=== PATIENT | female | born 1945 | race American Indian/Alaskan Native ===

== ENCOUNTER 2021-07-06 14:44 | Inpatient (IN) | payer MEDICARE ==
--- NOTE | 2021-07-06 15:02 | Emergency Department Report ---
ED Shortness of Breath HPI - General Stated Complaint: PAT Time Seen by Provider: 07/06/21 14:48 Source: patient, EMS, old records reviewed (nursing home facility docum entation) Mode of arrival: Ambulatory Limitations: No Limitations - History of Present Illness Initial Comments: Chief complaint shortness of breath, chest discomfort HPI: This is a 75-year-old female with history of encephalopathy COPD, chronic respiratory failure on 2 L nasal cannula, pulmonary hypertension, venous insufficiency, hypertension, end-stage renal disease on hemodialysis Tuesday, systolic heart failure, obstructive sleep apnea, CVA with left hemiplegia, history of breast cancer who presents from [facility] with shortness of breath and chest discomfort. Shortness of breath has been present for at least 3 days. Patient normally requires 2 L nasal cannula. She has had increased oxygen requirement. Today 11 AM she had the gradual onset of chest discomfort. Mild to moderate. No association with cough. She has a nonproductive cough. She denies fever or chills. Patient had nonrebreather in place upon EMS arrival. SNF staff reported room air oxygenation 85% According to SNF documentation, patient is full CODE STATUS. I spoke with Alana Posey daughter phone #[phone] Daughter is the clinical decision maker. Patient has lived with Ms. Alana Posey for 14 years. Patient was diagnosed with dementia 2 years ago. She has had a angel decline in her clinical medical condition since her diagnosis. Three weeks ago, patient stopped walking. She was admitted at [facility] 3 weeks ago for "heart discomfort" and dementia. Patient also was being treated for ulceration over her right Achilles tendon. She was transferred to [facility] 2 1/2 weeks ago for physical therapy and rehabilitation. Goal was to be discharged tomorrow with daughter Alana Posey. Ms. Posey plans to continue to take care of her mother at home. Patient was informed by staff members at [facility] that 9 patients and 1 nurse ordered recently diagnosed with Covid infection. Ms. Posey is concerned that her mother may have contracted Covid. Patient was diagnosed with Covid infection in February. She received 2 doses of but during the Covid vaccine in February. Patient's PCP former PCP Dr. Dawn at [facility]. She is now followed at [facility]. She receives dialysis at [address] Gwendolyn sparks. Patient normally receives hemodialysis Tuesday at the [facility]. While admitted her scheduled dialysis days changed to Tuesday. [facility]. Patient has been on dialysis for 5 to 6 years. She does not make urine. MD Complaint: shortness of breath, cough, chest pain -: Gradual, days(s) (3 days) Severity: severe Quality: dull Consistency: constant Improves With: nothing Worsens With: nothing Known History Of: COPD, congestive heart failure, other (End-stage renal disease) Treatments Prior to Arrival: oxygen - Related Data Allergies Allergy/AdvReac Type Severity Reaction Status Date / Time No Known Allergies Allergy Unverified 07/06/21 15:00 ED Review of Systems ROS: Stated complaint: PAT Other details as noted in HPI Comment: All other systems reviewed and negative Constitutional: malaise. denies: fever Respiratory: cough, shortness of breath Cardiovascular: chest pain Gastrointestinal: denies: abdominal pain, nausea, vomiting ED Past Medical Hx - Past Medical History Previous Medical History?: Yes Hx Hypertension: Yes Hx CVA: Yes Hx Congestive Heart Failure: Yes Hx Renal Disease: Yes Hx COPD: Yes - Surgical History Additional Surgical History: Hysterectomy, - Social History Smoking Status: Former Smoker Substance Use Type: None ED Physical Exam - General General appearance: alert, in distress, other (Obvious work of breathing speaking 1-2 word sentences with effort) - Head Head exam: Present: atraumatic, normocephalic - Eye Eye exam: Present: normal appearance - ENT ENT exam: Present: mucous membranes moist - Neck Neck exam: Present: normal inspection, full ROM - Respiratory Respiratory exam: Present: respiratory distress, rales, rhonchi, accessory muscle use, decreased breath sounds, prolonged expiratory - Cardiovascular Cardiovascular Exam: Present: regular rate, normal rhythm, normal heart sounds. Absent: systolic murmur, diastolic murmur, rubs, gallop - GI/Abdominal GI/Abdominal exam: Present: soft, normal bowel sounds. Absent: distended, tenderness, guarding, rebound - Extremities Exam Extremities exam: Present: other (No pedal edema, bandage right lower posterior leg) - Neurological Exam Neurological exam: Present: alert, oriented X3 - Psychiatric Psychiatric exam: Present: depressed, flat affect - Skin Skin exam: Present: warm, dry, intact, other (Hyperpigmented venous stasis changes) ED Course Vital Signs 07/06/21 07/06/21 07/06/21 15:00 15:15 15:16 Temperature 99 F Pulse Rate 84 82 Pulse Rate [ Anterior Bilateral Throughout] Respiratory 15 22 Rate Respiratory Rate [Anterior Bilateral Throughout] Blood Pressure 121/65 Blood Pressure 117/54 [Right] O2 Sat by Pulse 100 93 97 Oximetry 07/06/21 07/06/21 07/06/21 15:31 15:36 16:01 Temperature Pulse Rate 81 75 Pulse Rate [ 76 Anterior Bilateral Throughout] Respiratory 22 18 Rate Respiratory 21 Rate [Anterior Bilateral Throughout] Blood Pressure 117/54 111/54 Blood Pressure [Right] O2 Sat by Pulse 97 100 Oximetry 07/06/21 16:31 Temperature Pulse Rate 74 Pulse Rate [ Anterior Bilateral Throughout] Respiratory 17 Rate Respiratory Rate [Anterior Bilateral Throughout] Blood Pressure 133/65 Blood Pressure [Right] O2 Sat by Pulse 100 Oximetry ED Medical Decision Making - Lab Data Result diagrams: 07/06/21 15:17 07/06/21 15:17 - EKG Data -: EKG Interpreted by Me EKG shows normal: sinus rhythm Rate: normal - EKG Data 07/06/21 15:25 EKG obtained 1452 EKG interpreted by me Rate 90 bpm normal sinus rhythm left axis deviation left bundle branch block no notable ischemia, concordant ST elevation does not meet [facility] STEMI criteria - Radiology Data Radiology results: report reviewed [facility] [address] [place] [address] XRay Report Signed Patient: JAROCHO POSEY MR#: [id number] : 1945 Acct:[id number] Age/Sex: 75 / F ADM Date: 07/06/21 Loc: ED Attending Dr: Ordering Physician: Danyelle Ward MD Date of Service: 07/06/21 Procedure(s): XR chest 1V ap Accession Number(s): [id number] cc: Danyelle Ward MD Fluoro Time In Minutes: XR chest 1V ap INDICATION / CLINICAL INFORMATION: Chest Pain shortness of breath. COMPARISON: None available. FINDINGS: SUPPORT DEVICES: None. HEART /PULMONARY VASCULATURE: There is cardiomegaly with pulmonary vasculature congestion. LUNGS / PLEURA: Patchy pulmonary airspace opacities are seen throughout the lungs, may reflect pulmonary edema. No sizable pleural effusion. No pneumothorax. ADDITIONAL FINDINGS: No significant additional findings. IMPRESSION: CHF with patchy pulmonary opacities, may reflect pulmonary edema., Correlation to exclude superimposed pneumonia. Signer Name: Tina Gordon MD Signed: 07/06/2021 3:27 PM Workstation Name: [id number] Transcribed By: LARRY Dictated By: TINA GORDON MD Electronically Authenticated By: TINA GORDON MD Signed Date/Time: 07/06/21 1527 DD/ 25 TD/TT: - Medical Decision Making Acute on chronic respiratory failure hypoxia with increasing oxygen requirement. Patient normally uses 2 L nasal cannula oxygen. She is now on 5 L nasal cannula. Multifactorial: Acute systolic heart failure likely superimposed hypervolemia due to renal disease. Next Patient mated to hospital service in fair condition. I have reviewed labs: BNP greater than 35,000 reflective of both cardiac and renal disease, troponin equivocal elevation, potassium within normal limits. Bicarbonate within normal limits. Suspect anemia chronic disease. WBC within normal limits Critical Care Time: Yes Critical care time in (mins) excluding proc time.: 40 Critical care attestation.: If time is entered above; I have spent that time in minutes in the direct care of this critically ill patient, excluding procedure time. 40 minutes of critical care time excluding procedures were used in the care of the patient. I listened to EMS report with charge nurse. Possible STEMI reported. I asked interventional radiologist Dr. Harding to review the transmitted EKG prior to patient's arrival. He determined that EKG represented left bundle branch block without meeting ST elevation for acute IL. I came immediately to the bedside upon patient's arrival. I obtained history from EMS at the bedside. I reviewed stat EKG which was obtained while patient was located at the EMS wall. I discussed treatment plan with the nursing team members. I reviewed electronic record. I kept the family members informed. Patient required m ultiple interventions and reassessments. ED Disposition Clinical Impression: Acute respiratory failure with hypoxia, Acute systolic heart failure, End-stage renal disease on hemodialysis, Pulmonary hypertension, Suspected COVID-19 virus infection Disposition: ADMITTED INPATIENT Is pt being admited?: Yes Does the pt Need Aspirin: No Condition: Fair
--- NOTE | 2021-07-06 15:32 | XRay Report ---
XR chest 1V ap INDICATION / CLINICAL INFORMATION: Chest Pain shortness of breath. COMPARISON: None available. FINDINGS: SUPPORT DEVICES: None. HEART /PULMONARY VASCULATURE: There is cardiomegaly with pulmonary vasculature congestion. LUNGS / PLEURA: Patchy pulmonary airspace opacities are seen throughout the lungs, may reflect pulmon alisson edema. No sizable pleural effusion. No pneumothorax. ADDITIONAL FINDINGS: No significant additional findings. IMPRESSION: CHF with patchy pulmonary opacities, may reflect pulmonary edema., Correlation to exclude superimpose d pneumonia. Signer Name: Piotr Gordon MD Signed: 07/06/2021 3:27 PM Workstation Name: [id number]
[2021-07-06 15:35] LABS: Basophils # (Auto) 0.1 K/mm3 (0.0-0.1); Basophils % (Auto) 1.6 % (0.0-1.8); Eosinophils % (Auto) 0.1 % (0.0-4.3); Hematocrit 23.1 % (30.3-42.9); Hemoglobin 7.7 gm/dl (10.1-14.3); Lymphocytes % (Auto) 20.2 % (13.4-35.0); Mean Corpuscular HGB Conc 33 % (30-34); Mean Corpuscular Volume 98 fl (79-97); Monocytes # (Auto) 0.4 K/mm3 (0.0-0.8); Platelet Count 394 K/mm3 (140-440); Red Blood Count 2.37 M/mm3 (3.65-5.03); Red Cell Distribution Width 16.6 % (13.2-15.2)
[2021-07-06] MEDS ORDERED: VANCOMYCIN/NS 1 GM/250 ML 1 GM/250 ML BAG IV ONE (15:45)
[2021-07-06] MEDS ORDERED: PIPERACIL/TAZOBACTA 4.5/NS 100 4.5 GM/100 ML VIAL IV ONE (15:45)
[2021-07-06] MEDS ORDERED: ALBUTEROL 2.5 MG/3 ML NEBU IH ONE (16:00)
[2021-07-06] MEDS ORDERED: IPRATROPIUM 0.02% NEBU 2.5 ML IH ONE (16:00)
[2021-07-06 16:52] LABS: Albumin 3.3 g/dL (3.9-5)
[2021-07-06 17:25] LABS: Chol/HDL Ratio 1.92 %
[2021-07-06] MEDS ORDERED: METOCLOPRAMIDE 10 MG/2 ML INJ IV PRN ×2 (21:44→21:52)
[2021-07-06] MEDS ORDERED: ONDANSETRON 4 MG/2 ML INJ IV PRN (21:44)
[2021-07-06] MEDS ORDERED: ACETAMINOPHEN 325 MG TAB PO PRN (21:44)
[2021-07-06] MEDS ORDERED: FAMOTIDINE 20 MG TAB PO SCH (22:00)
--- NOTE | 2021-07-06 22:20 | History and Physical Report ---
History of Present Illness Date of examination: 07/06/21 Date of admission: 07/06/21 17:18 Chief complaint: Shortness of breath for 3 days History of present illness: 75-year-old -[place] female with multiple medical problems including end-stage renal disease on hemodialysis: Chronic respiratory failure on 2 L nasal cannula oxygen, pulmonary hypertension and hypertension sent from [facility] for increasing shortness of breath for the past 3 days. Patient is normally on 2 L nasal cannula oxygen. Patient has been having increased oxygen requirements. Around 11 AM today patient had chest discomfort and orthopnea. Oxygen saturations were low in the mid 85's. No fever or chills. Patient was put on nonrebreather by EMS. Patient was sent in for evaluation for increasing shortness of breath. No fever or chills. Recent exposure to coronavirus from 9 patient is in [facility]. Patient was diagnosed with Covid infection in March 07February. She received 2 doses of vaccination in February. Patient's primary care physician is Dr. Dawn and tobacco hanger is Dr. Ames and her hemodialysis is on Tuesday. [facility] Patient has been on dialysis for 5 years and does not make any urine. Patient also has a history of COPD. - Past Medical History --Previous Medical History?: Yes --Hypertension: Yes --CVA: Yes --Congestive Heart Failure: Yes --Renal Disease: Yes --COPD: Yes - Surgical History Additional Surgical History: Hysterectomy, - Social History Smoking Status: Former Smoker Substance Use Type: None Review of Systems ROS: Stated complaint: PAT Other details as noted in HPI Comment: All other systems reviewed and negative Constitutional: malaise. denies: fever Respiratory: cough, shortness of breath Cardiovascular: chest pain Gastrointestinal: denies: abdominal pain, nausea, vomiting Medications and Allergies Allergies Allergy/AdvReac Type Severity Reaction Status Date / Time No Known Allergies Allergy Unverified 07/06/21 15:00 Active Meds: Active Medications Acetaminophen (Acetaminophen 325 Mg Tab) 650 mg PO Q4H PRN PRN Reason: Pain MILD(1-3)/Fever >100.5/WOODS Famotidine (Famotidine 10 Mg Tab) 10 mg PO BID MARYCARMEN Furosemide (Furosemide 40 Mg/4 Ml Inj) 40 mg IV 0600,1800 [facility] Heparin Sodium (Porcine) (Heparin 5,000 Unit/1 Ml Vial) 5,000 unit SUB-Q Q12HR [facility] Hydromorphone HCl (Hydromorphone 1 Mg/1 Ml Inj) 0.5 mg IV Q3H PRN PRN Reason: Pain , Severe (7-10) Azithromycin (Zithromax/Ns) 500 mg in 250 mls @ 250 mls/hr IV Q24H [facility] Ceftriaxone Sodium (Rocephin/Ns 2 Gm/100 Ml) 2 gm in 100 mls @ 200 mls/hr IV Q24H [facility]; Protocol Metoclopramide HCl (Metoclopramide 10 Mg/2 Ml Inj) 2.5 mg IV Q6H PRN PRN Reason: Nausea And Vomiting Ondansetron HCl (Ondansetron 4 Mg/2 Ml Inj) 4 mg IV Q8H PRN PRN Reason: Nausea And Vomiting Oxycodone/Acetaminophen (Oxycodone /Acetaminophen 5-325mg Tab) 1 tab PO Q6H PRN PRN Reason: Pain, Moderate (4-6) Potassium Chloride (Potassium Chloride Er 20 Meq Tab) 20 meq PO Q12H [facility] Sodium Chloride (Sodium Chloride 0.9% 10 Ml Flush Syringe) 10 ml IV BID [facility] Sodium Chloride (Sodium Chloride 0.9% 10 Ml Flush Syringe) 10 ml IV PRN PRN PRN Reason: LINE FLUSH Exam - Physical Exam Narrative exam: On 3 L nasal cannula oxygen - Constitutional Vitals: Temp Pulse Resp BP Pulse Ox 99 F 80 18 150/72 100 07/06/21 15:16 07/06/21 19:01 07/06/21 19:01 07/06/21 19:01 07/06/21 19:01 General appearance: Present: mild distress, well-nourished - EENT Eyes: Present: PERRL ENT: hearing intact, clear oral mucosa - Neck Neck: Present: supple, normal ROM - Respiratory Respiratory effort: normal Respiratory: bilateral: CTA, rales - Cardiovascular Heart rate: 78 Rhythm: regular Heart Sounds: Present: S1 & S2. Absent: rub, click - Extremities Extremities: no ischemia, pulses intact, pulses symmetrical, No edema Peripheral Pulses: within normal limits - Abdominal General gastrointestinal: Present: soft, non-tender, non-distended, normal bowel sounds Female genitourinary: Present: normal - Integumentary Integumentary: Present: clear, warm, dry - Musculoskeletal Musculoskeletal: gait normal, strength equal bilaterally - Psychiatric Psychiatric: appropriate mood/affect, intact judgment & insight - Neurologic Neurologic: CNII-XII intact, moves all extremities - Allied Health Allied health notes reviewed: nursing, case management HEART Score - HEART Score History: Highly suspicious Age: > 65 Risk factors: > 3 risk factors or hx of atherosclerotic disease Troponin: Troponin T 0.264 ng/mL (0.00-0.029) H* 07/06/21 15:17 Troponin: 1-3x normal limit - Critical Actions Critical Actions: 4-6 pts:12-16.6% risk of adverse cardiac event. Should be admitted Results - Labs CBC & Chem 7: 07/07/21 03:21 07/07/21 03:21 Labs: Laboratory Last Values WBC 4.9 K/mm3 (4.5-11.0) 07/06/21 15:17 RBC 2.37 M/mm3 (3.65-5.03) L 07/06/21 15:17 Hgb 7.7 gm/dl (10.1-14.3) L 07/06/21 15:17 Hct 23.1 % (30.3-42.9) L 07/06/21 15:17 MCV 98 fl (79-97) H 07/06/21 15:17 MCH 32 pg (28-32) 07/06/21 15:17 MCHC 33 % (30-34) 07/06/21 15:17 RDW 16.6 % (13.2-15.2) H 07/06/21 15:17 Plt Count 394 K/mm3 (140-440) 07/06/21 15:17 Lymph % (Auto) 20.2 % (13.4-35.0) 07/06/21 15:17 Alpine % (Auto) 9.0 % (0.0-7.3) H 07/06/21 15:17 Eos % (Auto) 0.1 % (0.0-4.3) 07/06/21 15:17 Baso % (Auto) 1.6 % (0.0-1.8) 07/06/21 15:17 Lymph # (Auto) 1.0 K/mm3 (1.2-5.4) L 07/06/21 15:17 Alpine # (Auto) 0.4 K/mm3 (0.0-0.8) 07/06/21 15:17 Eos # (Auto) 0.0 K/mm3 (0.0-0.4) 07/06/21 15:17 Baso # (Auto) 0.1 K/mm3 (0.0-0.1) 07/06/21 15:17 Seg Neutrophils % 69.1 % (40.0-70.0) 07/06/21 15:17 Seg Neutrophils # 3.4 K/mm3 (1.8-7.7) 07/06/21 15:17 Sodium 132 mmol/L (137-145) L 07/06/21 15:17 Potassium 3.7 mmol/L (3.6-5.0) 07/06/21 15:17 Chloride 90.9 mmol/L (98-107) L 07/06/21 15:17 Carbon Dioxide 27 mmol/L (22-30) 07/06/21 15:17 Anion Gap 18 mmol/L 07/06/21 15:17 BUN 26 mg/dL (7-17) H 07/06/21 15:17 Creatinine 7.2 mg/dL (0.6-1.2) H 07/06/21 15:17 Estimated GFR 7 ml/min 07/06/21 15:17 BUN/Creatinine Ratio 4 % 07/06/21 15:17 Glucose 92 mg/dL (65-100) 07/06/21 15:17 Calcium 10.0 mg/dL (8.4-10.2) 07/06/21 15:17 Total Bilirubin 0.50 mg/dL (0.1-1.2) 07/06/21 15:17 AST 22 units/L (5-40) 07/06/21 15:17 ALT 13 units/L (7-56) 07/06/21 15:17 Alkaline Phosphatase 60 units/L (35-129) 07/06/21 15:17 Troponin T 0.264 ng/mL (0.00-0.029) H* 07/06/21 15:17 NT-Pro-B Natriuret Pep > 30094 pg/mL (0-900) H 07/06/21 15:17 Total Protein 7.4 g/dL (6.3-8.2) 07/06/21 15:17 Albumin 3.3 g/dL (3.9-5) L 07/06/21 15:17 Albumin/Globulin Ratio 0.7 % 07/06/21 15:17 Triglycerides 54 mg/dL (2-149) 07/06/21 15:17 Cholesterol 100 mg/dL (50-199) 07/06/21 15:17 LDL Cholesterol Direct 32 mg/dL (50-130) L 07/06/21 15:17 HDL Cholesterol 52 mg/dL (40-59) 07/06/21 15:17 Cholesterol/HDL Ratio 1.92 % 07/06/21 15:17 - Imaging and Cardiology EKG: report reviewed Chest x-ray: report reviewed Imaging and Cardiology: Chest x-ray CHF with patchy pulmonary opacities, may reflect pulmonary edema. Correlation to exclude superimposed pneumonia EKG Sinus rhythm no acute ST-T wave changes Assessment and Plan Advance Directives: Yes (Full code) VTE prophylaxis?: Chemical Plan of care discussed with patient/family: Yes - Patient Problems (1) Acute respiratory failure with hypoxia Current Visit: Yes Status: Acute Plan to address problem: Patient hypoxic and on nonrebreather secondary to volume overload and CHF exacerbation Pneumonia to be excluded but unlikely (2) Acute exacerbation of CHF (congestive heart failure) Current Visit: Yes Status: Acute Qualifiers: Heart failure type: combined systolic and diastolic Qualified Code(s): I50.43 - Acute on chronic combined systolic (congestive) and diastolic (congestive) heart failure Plan to address problem: Patient needs emergent hemodialysis and increased ultrafiltration and volume removal BNP is more than 35,000 (3) Suspected COVID-19 virus infection Current Visit: Yes Status: Acute Plan to address problem: Patient is vaccinated Coronavirus PCR requested just because he is exposed to other [facility] residents (4) End-stage renal disease on hemodialysis Current Visit: Yes Status: Chronic Plan to address problem: Continue hemodialysis as per schedule (5) Pulmonary hypertension Current Visit: Yes Status: Chronic Plan to address problem: Treat pulmonary hypertension (6) Hypertension Current Visit: Yes Status: Chronic Qualifiers: Hypertension type: primary hypertension Qualified Code(s): I10 - Essential (primary) hypertension Plan to address problem: Continue antihypertensives (7) Hyponatremia Current Visit: Yes Status: Acute Plan to address problem: Dilational Should correct with correction of increased ultrafiltration (8) NSTEMI (non-ST elevated myocardial infarction) Current Visit: Yes Status: Chronic Plan to address problem: Secondary to troponin leak CK and CK-MB requested to stratify (9) Malnutrition Current Visit: Yes Status: Chronic Qualifiers: Protein-calorie malnutrition severity: mild Plan to address problem: Dietary supplements Albumin of 3.3 (10) Anemia Current Visit: Yes Status: Chronic Qualifiers: Anemia type: due to chronic kidney disease Plan to address problem: Secondary to end-stage renal disease (11) DVT prophylaxis Current Visit: Yes Status: Acute Plan to address problem: On heparin and GI prophylaxis
[2021-07-07] MEDS: AZITHROMYCIN/NS 500 MG/250 ML 500 MG/250 ML BAG IV SCH ×2 (01:00→23:19)
[2021-07-07] MEDS: POTASSIUM CHLORIDE ER 20 MEQ TAB PO SCH ×3 (01:00→23:29)
[2021-07-07] MEDS: FAMOTIDINE 10 MG TAB PO SCH ×3 (01:00→23:05)
[2021-07-07] MEDS: HEPARIN 5,000 UNIT/1 ML VIAL SUB-Q SCH ×3 (01:00→23:05)
[2021-07-07] MEDS: cefTRIAXone/NS 2 GM/100 ML 2 GM/100 ML BAG IV SCH ×2 (01:00→23:19)
[2021-07-07 03:57] LABS: Basophils % (Auto) 0.6 % (0.0-1.8); Eosinophils % (Auto) 0.6 % (0.0-4.3); Hemoglobin 7.7 gm/dl (10.1-14.3); Lymphocytes # (Auto) 1.4 K/mm3 (1.2-5.4); Lymphocytes % (Auto) 23.3 % (13.4-35.0); Mean Corpuscular HGB Conc 34 % (30-34); Mean Corpuscular Volume 97 fl (79-97); Monocytes # (Auto) 0.7 K/mm3 (0.0-0.8); Monocytes % (Auto) 10.8 % (0.0-7.3); Platelet Count 451 K/mm3 (140-440); Red Blood Count 2.38 M/mm3 (3.65-5.03); Red Cell Distribution Width 16.8 % (13.2-15.2)
[2021-07-07 04:13] LABS: Albumin 3.2 g/dL (3.9-5); Calcium 9.4 mg/dL (8.4-10.2)
[2021-07-07 04:23] LABS: % Iron Saturation 24.76 %
--- NOTE | 2021-07-07 08:19 | Consultation ---
History of Present Illness - Reason for Consult Consult date: 07/07/21 end stage renal disease Requesting physician: ROSA WRIGHT - History of Present Illness 75-year-old lady who is not known to me with a history of hypertension, chronic obstructive pulmonary disease, chronic respiratory failure with pulmonary hypertension on 2 L oxygen nasal cannula and chronic systolic heart failure. Presents complaining of 3 days history of shortness of breath and chest discom fort. Patient oxygen requirement has increased. She also complained of a productive cough. She complains of chest discomfort which is mild to moderate in severity. There is no fever or chills. No other concerning symptoms. On presentation chest x-ray showed patchy pulmonary infiltrates and BNP was more than 35,000. Patient was recently admitted at [facility] with Ulceration right Achilles tendon. She has received 2 doses of Moderna COVID-19 vaccine. Past History Past Medical History: COPD, hypertension, other Social history: no significant social history Family history: no significant family history Medications and Allergies Allergies Allergy/AdvReac Type Severity Reaction Status Date / Time No Known Allergies Allergy Unverified 07/06/21 15:00 Home Medications Medication Instructions Recorded Confirmed Last Taken Type Albuterol Sulfate [Proair 90 mcg IH 07/07/21 Unknown History Respiclick] AtorvaSTATin [Lipitor] 40 mg PO QHS 07/07/21 07/07/21 Unknown History Clopidogrel [Plavix] 75 mg PO QDAY 07/07/21 07/07/21 Unknown History Ergocalciferol (Vitamin D2) 1,250 mcg PO 07/07/21 Unknown History [Drisdol] Folic Acid 07/07/21 Unknown History Mirtazapine [Remeron] 7.5 07/07/21 Unknown History NIFEdipine [Nifedipine ER] 90 mg PO 07/07/21 Unknown History Omeprazole 40 mg PO 07/07/21 Unknown History Sennosides [Senna] 8.6 mg PO 07/07/21 Unknown History Toprol Xl 50 mg 07/07/21 Unknown History traMADoL [Ultram] 50 mg PO Q12HR 07/07/21 07/07/21 Unknown History Active Meds: Active Medications Acetaminophen (Acetaminophen 325 Mg Tab) 650 mg PO Q4H PRN PRN Reason: Pain MILD(1-3)/Fever >100.5/WOODS Famotidine (Famotidine 10 Mg Tab) 10 mg PO BID MARYCARMEN Last Admin: 07/07/21 01:00 Dose: 10 mg Documented by: Furosemide (Furosemide 40 Mg/4 Ml Inj) 40 mg IV 0600,1800 [facility] Heparin Sodium (Porcine) (Heparin 5,000 Unit/1 Ml Vial) 5,000 unit SUB-Q Q12HR [facility] Last Admin: 07/07/21 01:00 Dose: 5,000 unit Documented by: Hydromorphone HCl (Hydromorphone 1 Mg/1 Ml Inj) 0.5 mg IV Q3H PRN PRN Reason: Pain , Severe (7-10) Azithromycin (Zithromax/Ns) 500 mg in 250 mls @ 250 mls/hr IV Q24H [facility] Stop: 07/10/21 22:59 Last Admin: 07/07/21 01:00 Dose: 250 mls/hr Documented by: Ceftriaxone Sodium (Rocephin/Ns 2 Gm/100 Ml) 2 gm in 100 mls @ 200 mls/hr IV Q24H [facility]; Protocol Stop: 07/10/21 22:29 Last Admin: 07/07/21 01:00 Dose: 200 mls/hr Documented by: Metoclopramide HCl (Metoclopramide 10 Mg/2 Ml Inj) 2.5 mg IV Q6H PRN PRN Reason: Nausea And Vomiting Ondansetron HCl (Ondansetron 4 Mg/2 Ml Inj) 4 mg IV Q8H PRN PRN Reason: Nausea And Vomiting Oxycodone/Acetaminophen (Oxycodone /Acetaminophen 5-325mg Tab) 1 tab PO Q6H PRN PRN Reason: Pain, Moderate (4-6) Potassium Chloride (Potassium Chloride Er 20 Meq Tab) 20 meq PO Q12H [facility] Last Admin: 07/07/21 01:00 Dose: 20 meq Documented by: Sodium Chloride (Sodium Chloride 0.9% 10 Ml Flush Syringe) 10 ml IV BID [facility] Last Admin: 07/07/21 01:00 Dose: 10 ml Documented by: Sodium Chloride (Sodium Chloride 0.9% 10 Ml Flush Syringe) 10 ml IV PRN PRN PRN Reason: LINE FLUSH Review of Systems All systems: negative (As noted in history of present illness) Exam - Vital Signs Vital signs: Vital Signs Pulse Ox 100 07/06/21 15:00 - Physical Exam Narrative exam: Patient was not examined at the bedside today due to personal protective equipment preservation during the COVID-19 pandemic Results - Lab Results 07/08/21 04:56 07/08/21 04:56 Most recent lab results Calcium 9.4 mg/dL (8.4-10.2) 07/07/21 03:21 Assessment and Plan - Patient Problems (1) Acute respiratory failure with hypoxia Current Visit: Yes Status: Resolved Plan to address problem: Continue respiratory support, supplemental oxygen further treatment by pulmonary. Start empiric AB (2) Suspected COVID-19 virus infection Current Visit: Yes Status: Acute Plan to address problem: Contnnue management of Covid 19 Pneumonia. (3) Anemia Current Visit: Yes Status: Chronic Qualifiers: Anemia type: due to chronic kidney disease (4) End-stage renal disease on hemodialysis Current Visit: Yes Status: Chronic
[2021-07-07] MEDS ORDERED: SODIUM CHLORIDE 0.9% 100 ML IV PRN (09:00)
[2021-07-07] MEDS ORDERED: EPOETIN ALFA-EPBX 20,000 UNIT/1 ML VIAL IV PRN (09:00)
[2021-07-07] MEDS: FUROSEMIDE 40 MG/4 ML INJ IV SCH ×2 (09:07→23:29)
[2021-07-07 12:05] LABS: Hepatitis C Virus Antibody Non-Reactive (NonReactive)
[2021-07-07 12:08] LABS: Hepatitis B Surface Antigen Nonreactive (Negative)
--- NOTE | 2021-07-07 12:09 | Consultation ---
History of Present Illness Consult date: 07/07/21 Consult reason: congestive heart failure History of present illness: This is a 75-year old F with multiple medical problems including advance dem entia, end stage renal disease on dialysis, ischemic cardiomypathy, and coronary artery disease. She receives her usual cardiac care with Dr Cee at [facility]. She was sent to the emergency department from a rehab facility with worsening shortness of breath, acute hypoxic respiratory failure, oxygen saturation reported in the mid 80's in the ED. Chest x-ray shows cardiomegaly with mild vascular congestion. She is currently on isolation protocol for suspicion for COVID 19 infection. An ECG done is sinus rhythm with a left bundle branch block. There is no prior ECG available for comparison. A cardiac consultation has been requested for CHF evaluation. Past History Past Medical History: CAD, COPD, dialysis, heart failure, hypertension, renal failure, stroke Medications and Allergies Allergies Allergy/AdvReac Type Severity Reaction Status Date / Time No Known Allergies Allergy Unverified 07/06/21 15:00 Active Meds: Active Medications Acetaminophen (Acetaminophen 325 Mg Tab) 650 mg PO Q4H PRN PRN Reason: Pain MILD(1-3)/Fever >100.5/WOODS Famotidine (Famotidine 10 Mg Tab) 10 mg PO BID [facility] Last Admin: 07/07/21 10:36 Dose: 10 mg Documented by: Furosemide (Furosemide 40 Mg/4 Ml Inj) 40 mg IV 0600,1800 [facility] Last Admin: 07/07/21 09:07 Dose: 40 mg Documented by: Heparin Sodium (Porcine) (Heparin 5,000 Unit/1 Ml Vial) 5,000 unit SUB-Q Q12HR [facility] Last Admin: 07/07/21 10:36 Dose: 5,000 unit Documented by: Hydromorphone HCl (Hydromorphone 1 Mg/1 Ml Inj) 0.5 mg IV Q3H PRN PRN Reason: Pain , Severe (7-10) Azithromycin (Zithromax/Ns) 500 mg in 250 mls @ 250 mls/hr IV Q24H [facility] Stop: 07/10/21 22:59 Last Admin: 07/07/21 01:00 Dose: 250 mls/hr Documented by: Ceftriaxone Sodium (Rocephin/Ns 2 Gm/100 Ml) 2 gm in 100 mls @ 200 mls/hr IV Q24H [facility]; Protocol Stop: 07/10/21 22:29 Last Admin: 07/07/21 01:00 Dose: 200 mls/hr Documented by: Sodium Chloride (Nacl 0.9%) 100 mls @ 999 mls/hr IV CORNELIUS PRN PRN Reason: Hypotension Metoclopramide HCl (Metoclopramide 10 Mg/2 Ml Inj) 2.5 mg IV Q6H PRN PRN Reason: Nausea And Vomiting Ondansetron HCl (Ondansetron 4 Mg/2 Ml Inj) 4 mg IV Q8H PRN PRN Reason: Nausea And Vomiting Oxycodone/Acetaminophen (Oxycodone /Acetaminophen 5-325mg Tab) 1 tab PO Q6H PRN PRN Reason: Pain, Moderate (4-6) Potassium Chloride (Potassium Chloride Er 20 Meq Tab) 20 meq PO Q12H [facility] Last Admin: 07/07/21 10:36 Dose: 20 meq Documented by: Sodium Chloride (Sodium Chloride 0.9% 10 Ml Flush Syringe) 10 ml IV BID [facility] Last Admin: 07/07/21 10:36 Dose: 10 ml Documented by: Sodium Chloride (Sodium Chloride 0.9% 10 Ml Flush Syringe) 10 ml IV PRN PRN PRN Reason: LINE FLUSH Physical Examination Vital Signs Pulse Ox 100 07/06/21 15:00 Narrative exam: Deferred due to isolation protocol. Results 07/07/21 03:21 07/07/21 03:21 Cardiac Enzymes 07/06/21 07/07/21 Range/Units 15:17 03:21 AST 22 20 (5-40) units/L Lipids 07/06/21 Range/Units 15:17 Triglycerides 54 (2-149) mg/dL Cholesterol 100 (50-199) mg/dL HDL Cholesterol 52 (40-59) mg/dL Cholesterol/HDL Ratio 1.92 % CBC 07/06/21 07/07/21 Range/Units 15:17 03:21 WBC 4.9 6.1 (4.5-11.0) K/mm3 RBC 2.37 L 2.38 L (3.65-5.03) M/mm3 Hgb 7.7 L 7.7 L (10.1-14.3) gm/dl Hct 23.1 L 23.0 L (30.3-42.9) % Plt Count 394 451 H (140-440) K/mm3 Lymph # (Auto) 1.0 L 1.4 (1.2-5.4) K/mm3 Weld # (Auto) 0.4 0.7 (0.0-0.8) K/mm3 Eos # (Auto) 0.0 0.0 (0.0-0.4) K/mm3 Baso # (Auto) 0.1 0.0 (0.0-0.1) K/mm3 Comprehensive Metabolic Panel 07/06/21 07/07/21 Range/Units 15:17 03:21 Sodium 132 L 135 L (137-145) mmol/L Potassium 3.7 3.7 (3.6-5.0) mmol/L Chloride 90.9 L 93.3 L (98-107) mmol/L Carbon Dioxide 27 27 (22-30) mmol/L BUN 26 H 30 H (7-17) mg/dL Creatinine 7.2 H 8.9 H (0.6-1.2) mg/dL Glucose 92 85 (65-100) mg/dL Calcium 10.0 9.4 (8.4-10.2) mg/dL AST 22 20 (5-40) units/L ALT 13 13 (7-56) units/L Alkaline Phosphatase 60 60 (35-129) units/L Total Protein 7.4 7.7 (6.3-8.2) g/dL Albumin 3.3 L 3.2 L (3.9-5) g/dL Assessment and Plan Acute hypoxic respiratory failure COPD on home oxygen Hx of CAD Hx of ischemic cardiomyopathy ESRD on HD Dementia Prior CVA Hypertension Anemia Will get an echocardiogram for LVEF assessment. Obtain prior records from [facility] for cardiac review.
--- NOTE | 2021-07-07 12:11 | Progress Note ---
Assessment and Plan Assessment and plan: 75-year-old -[place] female with multiple medical problems including end-stage renal disease on hemodialysis: Chronic respiratory failure on 2 L nasal cannula oxygen, pulmonary hypertension and hypertension sent from [facility] for increasing shortness of breath for the pa st 3 days. Patient is normally on 2 L nasal cannula oxygen. Patient has been having increased oxygen requirements. Around 11 AM today patient had chest discomfort and orthopnea. Oxygen saturations were low in the mid 85's. No fever or chills. Patient was put on nonrebreather by EMS. Patient was sent in for evaluation for increasing shortness of breath. No fever or chills. Recent exposure to coronavirus from 9 patient is in [facility]. Patient was diagnosed with Covid infection in March 07February. She received 2 doses of vaccination in February. Patient's primary care physician is Dr. Dawn and open die inspector is Dr. Ames and her hemodialysis is on Tuesday. Kidney disease move [facility] hemodialysis on the sn[facility] facility. Patient has been on dialysis for 5 years and does not make any urine. Patient also has a history of COPD. 07/07: Continue supportive care, wean oxygen as tolerated, Pre Press Proofer and tactical air defense controller input noted, Awaiting Covid test. will obtain wound management for lower ext lesion and evaluate for Pressure ulcer. FAMILY Contact for daughter [phone]- Will call in am once all records complete. (1) Acute respiratory failure with hypoxia Current Visit: Yes Status: Acute Plan to address problem: Patient hypoxic and on nonrebreather secondary to volume overload and CHF exacerbation Pneumonia to be excluded but unlikely (2) Acute exacerbation of CHF (congestive heart failure) Current Visit: Yes Status: Acute Qualifiers: Heart failure type: combined systolic and diastolic Qualified Code(s): I 50.43 - Acute on chronic combined systolic (congestive) and diastolic (congestive) heart failure Plan to address problem: Patient needs emergent hemodialysis and increased ultrafiltration and volume removal BNP is more than 35,000 (3) Suspected COVID-19 virus infection Current Visit: Yes Status: Acute Plan to address problem: Patient is vaccinated Coronavirus PCR requested just because he is exposed to other [facility] residents (4) End-stage renal disease on hemodialysis Current Visit: Yes Status: Chronic Plan to address problem: Continue hemodialysis as per schedule (5) Pulmonary hypertension Current Visit: Yes Status: Chronic Plan to address problem: Treat pulmonary hypertension (6) Hypertension Current Visit: Yes Status: Chronic Qualifiers: Hypertension type: primary hypertension Qualified Code(s): I10 - Essential (primary) hypertension Plan to address problem: Continue antihypertensives (7) Hyponatremia Current Visit: Yes Status: Acute Plan to address problem: Dilational Should correct with correction of increased ultrafiltration (8) NSTEMI (non-ST elevated myocardial infarction) Current Visit: Yes Status: Chronic Plan to address problem: Secondary to troponin leak CK and CK-MB requested to stratify (9) Malnutrition Current Visit: Yes Status: Chronic Qualifiers: Protein-calorie malnutrition severity: mild Plan to address problem: Dietary supplements Albumin of 3.3 (10) Anemia Current Visit: Yes Status: Chronic Qualifiers: Anemia type: due to chronic kidney disease Plan to address problem: Secondary to end-stage renal disease (11) DVT prophylaxis Current Visit: Yes Status: Acute Plan to address problem: On heparin and GI prophylaxis History Interval history: Patient seen and examined, remains with some shortness of breath. Hospitalist Physical - Physical exam Narrative exam: General appearance: Present: mild distress, well-nourished, on NC - EENT Eyes: Present: PERRL ENT: hearing intact, clear oral mucosa - Neck Neck: Present: supple, normal ROM - Respiratory Respiratory effort: normal Respiratory: bilateral: CTA, rales - Cardiovascular Heart rate: 78 Rhythm: regular Heart Sounds: Present: S1 & S2. Absent: rub, click - Extremities Extremities: no ischemia, pulses intact, pulses symmetrical, No edema Peripheral Pulses: within normal limits - Abdominal General gastrointestinal: Present: soft, non-tender, non-distended, normal bowel sounds Female genitourinary: Present: normal - Integumentary Integumentary: Present: left lower ext wound, warm, dry - Musculoskeletal Musculoskeletal: gait normal, strength equal bilaterally - Psychiatric Psychiatric: appropriate mood/affect, intact judgment & insight - Neurologic Neurologic: CNII-XII intact, moves all extremities - Allied Health Allied health notes reviewed: nursing, case management - Constitutional Vitals: Temp Pulse Resp BP Pulse Ox 99 F 84 22 144/71 97 07/06/21 15:16 07/07/21 10:55 07/07/21 10:55 07/07/21 10:55 07/07/21 10:55 General appearance: Present: mild distress, well-nourished HEART Score - HEART Score Age: > 65 Risk factors: > 3 risk factors or hx of atherosclerotic disease Troponin: Troponin T 0.264 ng/mL (0.00-0.029) H* 07/06/21 15:17 Troponin: 1-3x normal limit - Critical Actions Critical Actions: 4-6 pts:12-16.6% risk of adverse cardiac event. Should be admitted Results - Labs CBC & Chem 7: 07/07/21 03:21 07/07/21 03:21 Labs: Laboratory Last Values WBC 6.1 K/mm3 (4.5-11.0) 07/07/21 03:21 RBC 2.38 M/mm3 (3.65-5.03) L 07/07/21 03:21 Hgb 7.7 gm/dl (10.1-14.3) L 07/07/21 03:21 Hct 23.0 % (30.3-42.9) L 07/07/21 03:21 MCV 97 fl (79-97) 07/07/21 03:21 MCH 33 pg (28-32) H 07/07/21 03:21 MCHC 34 % (30-34) 07/07/21 03:21 RDW 16.8 % (13.2-15.2) H 07/07/21 03:21 Plt Count 451 K/mm3 (140-440) H 07/07/21 03:21 Lymph % (Auto) 23.3 % (13.4-35.0) 07/07/21 03:21 Murray % (Auto) 10.8 % (0.0-7.3) H 07/07/21 03:21 Eos % (Auto) 0.6 % (0.0-4.3) 07/07/21 03:21 Baso % (Auto) 0.6 % (0.0-1.8) 07/07/21 03:21 Lymph # (Auto) 1.4 K/mm3 (1.2-5.4) 07/07/21 03:21 Murray # (Auto) 0.7 K/mm3 (0.0-0.8) 07/07/21 03:21 Eos # (Auto) 0.0 K/mm3 (0.0-0.4) 07/07/21 03:21 Baso # (Auto) 0.0 K/mm3 (0.0-0.1) 07/07/21 03:21 Seg Neutrophils % 64.7 % (40.0-70.0) 07/07/21 03:21 Seg Neutrophils # 3.9 K/mm3 (1.8-7.7) 07/07/21 03:21 Sodium 135 mmol/L (137-145) L 07/07/21 03:21 Potassium 3.7 mmol/L (3.6-5.0) 07/07/21 03:21 Chloride 93.3 mmol/L (98-107) L 07/07/21 03:21 Carbon Dioxide 27 mmol/L (22-30) 07/07/21 03:21 Anion Gap 18 mmol/L 07/07/21 03:21 BUN 30 mg/dL (7-17) H 07/07/21 03:21 Creatinine 8.9 mg/dL (0.6-1.2) H 07/07/21 03:21 Estimated GFR 5 ml/min 07/07/21 03:21 BUN/Creatinine Ratio 3 % 07/07/21 03:21 Glucose 85 mg/dL (65-100) 07/07/21 03:21 Hemoglobin A1c 4.7 % (4-6) 07/07/21 03:21 Calcium 9.4 mg/dL (8.4-10.2) 07/07/21 03:21 Iron 26 ug/dL (37-170) L 07/07/21 03:21 TIBC 105 mcg/dL (250-450) L 07/07/21 03:21 % Saturation 24.76 % 07/07/21 03:21 Transferrin 85 mg/dl (192-382) L 07/07/21 03:21 Total Bilirubin 0.50 mg/dL (0.1-1.2) 07/07/21 03:21 AST 20 units/L (5-40) 07/07/21 03:21 ALT 13 units/L (7-56) 07/07/21 03:21 Alkaline Phosphatase 60 units/L (35-129) 07/07/21 03:21 Troponin T 0.264 ng/mL (0.00-0.029) H* 07/06/21 15:17 NT-Pro-B Natriuret Pep > 48077 pg/mL (0-900) H 07/06/21 15:17 Total Protein 7.7 g/dL (6.3-8.2) 07/07/21 03:21 Albumin 3.2 g/dL (3.9-5) L 07/07/21 03:21 Albumin/Globulin Ratio 0.7 % 07/07/21 03:21 Triglycerides 54 mg/dL (2-149) 07/06/21 15:17 Cholesterol 100 mg/dL (50-199) 07/06/21 15:17 LDL Cholesterol Direct 32 mg/dL (50-130) L 07/06/21 15:17 HDL Cholesterol 52 mg/dL (40-59) 07/06/21 15:17 Cholesterol/HDL Ratio 1.92 % 07/06/21 15:17 Vitamin B12 581.2 pg/mL (211-911) 07/07/21 03:21 Hepatitis A IgM Ab Non-reactive (NonReactive) 07/07/21 10:12 Hep Bs Antigen Nonreactive (Negative) 07/07/21 10:12 Hep B Core IgM Ab Non-reactive (NonReactive) 07/07/21 10:12 Hepatitis C Antibody Non-reactive (NonReactive) 07/07/21 10:12 Microbiology: Microbiology 07/06/21 15:22 Peripheral/Venous Blood Culture - Preliminary Culture in Progress 07/06/21 15:17 Peripheral/Venous Blood Culture - Preliminary Culture in Progress Active Medications - Current Medications Current Medications: Generic Name Dose Route Start Last Admin Trade Name Freq PRN Reason Stop Dose Admin Acetaminophen 650 mg 07/06/21 21:44 Acetaminophen 325 Mg Tab PO Q4H PRN Pain MILD(1-3)/Fever >100.5/WOODS Famotidine 10 mg 07/06/21 22:00 07/07/21 10:36 Famotidine 10 Mg Tab PO 10 mg BID MARYCARMEN Administration Furosemide 40 mg 07/07/21 06:00 07/07/21 09:07 Furosemide 40 Mg/4 Ml Inj IV 40 mg 0600,1800 MARYCARMEN Administration Heparin Sodium (Porcine) 5,000 unit 07/06/21 22:00 07/07/21 10:36 Heparin 5,000 Unit/1 Ml Vial SUB-Q 5,000 unit Q12HR MARYCARMEN Administration Hydromorphone HCl 0.5 mg 07/06/21 21:44 Hydromorphone 1 Mg/1 Ml Inj IV Q3H PRN Pain , Severe (7-10) Azithromycin 500 mg in 250 mls @ 250 mls/hr 07/06/21 22:00 07/07/21 01:00 Zithromax/Ns IV 07/10/21 22:59 250 mls/hr Q24H MARYCARMEN Administration Ceftriaxone Sodium 2 gm in 100 mls @ 200 mls/hr 07/06/21 22:00 07/07/21 01:00 Rocephin/Ns 2 Gm/100 Ml IV 07/10/21 22:29 200 mls/hr Q24H MARYCARMEN Administration Protocol Sodium Chloride 100 mls @ 999 mls/hr 07/07/21 09:00 Nacl 0.9% IV CORNELIUS PRN Hypotension Metoclopramide HCl 2.5 mg 07/06/21 21:52 Metoclopramide 10 Mg/2 Ml Inj IV Q6H PRN Nausea And Vomiting Ondansetron HCl 4 mg 07/06/21 21:44 Ondansetron 4 Mg/2 Ml Inj IV Q8H PRN Nausea And Vomiting Oxycodone/Acetaminophen 1 tab 07/06/21 21:44 Oxycodone /Acetaminophen 5-325mg Tab PO Q6H PRN Pain, Moderate (4-6) Potassium Chloride 20 meq 07/06/21 22:00 07/07/21 10:36 Potassium Chloride Er 20 Meq Tab PO 20 meq Q12H MARYCARMEN Administration Sodium Chloride 10 ml 07/06/21 22:00 07/07/21 10:36 Sodium Chloride 0.9% 10 Ml Flush Syringe IV 10 ml BID MARYCARMEN Administration Sodium Chloride 10 ml 07/06/21 21:44 Sodium Chloride 0.9% 10 Ml Flush Syringe IV PRN PRN LINE FLUSH
--- NOTE | 2021-07-07 17:43 | Electrocardiograph Report ---
[facility] Test Date: 2021-07-06 Test Time: 14:52:14 Pat Name: JAROCHO POSEY Department: Room: [place] [address] Gender: F Account Development Specialist: RAMONE JHAVERIB: 1945 Requested By: TORSTEN BASS Order Number: [id number] Reading MD: Zac Garcia Measurements Intervals [place] Rate: 89 P: 48 [place]: 159 QRS: -32 QRSD: 183 T: 126 QT: 442 QTc: 538 Interpretive Statements Sinus rhythm Probable left atrial enlargement Left bundle branch block ST elevation secondary to IVCD No previous ECG available for comparison Electronically Signed On 07-07-2021 17:43:36 EDT by Zac Garcia
[2021-07-07] MEDS: oxyCODONE /ACETAMINOPHEN 5-325MG TAB PO PRN (23:04)
[2021-07-07] MEDS: carvediloL 3.125 MG TAB PO SCH (23:05)
[2021-07-08] MEDS ORDERED: ALBUTEROL 2.5 MG/3 ML NEBU IH PRN (01:16)
[2021-07-08] MEDS: HYDROmorphone 1 MG/1 ML INJ IV PRN (03:07)
[2021-07-08 05:41] LABS: Hematocrit 20.1 % (30.3-42.9); Hemoglobin 6.6 gm/dl (10.1-14.3); Mean Corpuscular HGB Conc 33 % (30-34); Mean Corpuscular Volume 95 fl (79-97); Platelet Count 348 K/mm3 (140-440); Red Blood Count 2.11 M/mm3 (3.65-5.03); Red Cell Distribution Width 16.4 % (13.2-15.2)
[2021-07-08] MEDS: FUROSEMIDE 40 MG/4 ML INJ IV SCH (05:55)
[2021-07-08 06:44] LABS: Calcium 9.4 mg/dL (8.4-10.2)
--- NOTE | 2021-07-08 07:51 | Progress Note ---
Assessment and Plan Assessment and plan: 75-year-old -[place] female with multiple medical problems including end-stage renal disease on hemodialysis: Chronic respiratory failure on 2 L nasal cannula oxygen, pulmonary hypertension and hypertension sent from [facility] for increasing shortness of breath for the pa st 3 days. Patient is normally on 2 L nasal cannula oxygen. Patient has been having increased oxygen requirements. Around 11 AM today patient had chest discomfort and orthopnea. Oxygen saturations were low in the mid 85's. No fever or chills. Patient was put on nonrebreather by EMS. Patient was sent in for evaluation for increasing shortness of breath. No fever or chills. Recent exposure to coronavirus from 9 patient is in [facility]. Patient was diagnosed with Covid infection in March 07February. She received 2 doses of vaccination in February. Patient's primary care physician is Dr. Dawn and christmas bell ringer is Dr. Ames and her hemodialysis is on Tuesday. Kidney disease move well hemodialysis on the alf facility. Patient has been on dialysis for 5 years and does not make any urine. Patient also has a history of COPD. 07/07: Continue supportive care, wean oxygen as tolerated, [employer] and radiology nurse input noted, Awaiting Covid test. will obtain wound management for lower ext lesion and evaluate for Pressure ulcer. FAMILY Contact for daughter [phone]- Will call in am once all records complete. 07/08: Family reported to case management the do not want the patient to go back to the facility where she came from. They opted for home hospice and to continue dialysis. Per radiology nurse "Patient's echocardiogram shows a persistent ischemic cardiomyopathy, with left ventricular ejection fraction 20 to 25%. There is also heavily calcified mitral valve annulus, thickened mitral valve with a mean mitral gradient of 8.9, suggesting mild mitral stenosis. She looks and feels better, after dialysis management of fluid overload and decompensated heart failure. ..... We will continue guideline directed medical therapy, and consider noninvasive ischemia assessment after fluid overload is optimally resolved." I believe the recommendation is appropriate considering family's decision. We also discussed with the patient and anticipate discharge in 24 to 48 hours (1) Acute respiratory failure with hypoxia Current Visit: Yes Status: Acute Plan to address problem: Patient hypoxic and on nonrebreather secondary to volume overload and CHF exacerbation Pneumonia to be excluded but unlikely (2) Acute exacerbation of CHF (congestive heart failure) Current Visit: Yes Status: Acute Qualifiers: Heart failure type: combined systolic and diastolic Qualified Code(s): I50.43 - Acute on chronic combined systolic (congestive) and diastolic (congestive) heart failure Plan to address problem: Patient needs emergent hemodialysis and increased ultrafiltration and volume removal BNP is more than 35,000 (3) Suspected COVID-19 virus infection Current Visit: Yes Status: Acute Plan to address problem: Patient is vaccinated Coronavirus PCR requested just because he is exposed to other [facility] residents (4) End-stage renal disease on hemodialysis Current Visit: Yes Status: Chronic Plan to address problem: Continue hemodialysis as per schedule (5) Pulmonary hypertension Current Visit: Yes Status: Chronic Plan to address problem: Treat pulmonary hypertension (6) Hypertension Current Visit: Yes Status: Chronic Qualifiers: Hypertension type: primary hypertension Qualified Code(s): I10 - Essential (primary) hypertension Plan to address problem: Continue antihypertensives (7) Hyponatremia Current Visit: Yes Status: Acute Plan to address problem: Dilational Should correct with correction of increased ultrafiltration (8) NSTEMI (non-ST elevated myocardial infarction) Current Visit: Yes Status: Chronic Plan to address problem: Secondary to troponin leak CK and CK-MB requested to stratify (9) Malnutrition Current Visit: Yes Status: Chronic Qualifiers: Protein-calorie malnutrition severity: mild Plan to address problem: Dietary supplements Albumin of 3.3 (10) Anemia Current Visit: Yes Status: Chronic Qualifiers: Anemia type: due to chronic kidney disease Plan to address problem: Secondary to end-stage renal disease (11) DVT prophylaxis Current Visit: Yes Status: Acute Plan to address problem: On heparin and GI prophylaxis History Interval history: Patient seen and examined, much improved today. Noted to have severe anemia she is okay with transfusion. Hospitalist Physical - Physical exam Narrative exam: General appearance: Present: Resting comfortably, well-nourished, on NC - EENT Eyes: Present: PERRL ENT: hearing intact, clear oral mucosa - Neck Neck: Present: supple, normal ROM - Respiratory Respiratory effort: normal Respiratory: bilateral: CTA, rales - Cardiovascular Heart rate: 78 Rhythm: regular Heart Sounds: Present: S1 & S2. Absent: rub, click - Extremities Extremities: no ischemia, pulses intact, pulses symmetrical, No edema Peripheral Pulses: within normal limits - Abdominal General gastrointestinal: Present: soft, non-tender, non-distended, normal bowel sounds Female genitourinary: Present: normal - Integumentary Integumentary: Present: left lower ext wound, warm, dry - Musculoskeletal Musculoskeletal: gait normal, strength equal bilaterally - Psychiatric Psychiatric: appropriate mood/affect, intact judgment & insight - Neurologic Neurologic: CNII-XII intact, moves all extremities - Allied Health Allied health notes reviewed: nursing, case management - Constitutional Vitals: Temp Pulse Resp BP Pulse Ox 98.6 F 89 18 114/59 100 07/08/21 07:04 07/08/21 07:04 07/08/21 07:04 07/08/21 07:04 07/08/21 07:04 General appearance: Present: mild distress, well-nourished HEART Score - HEART Score Age: > 65 Risk factors: > 3 risk factors or hx of atherosclerotic disease Troponin: Troponin T 0.264 ng/mL (0.00-0.029) H* 07/06/21 15:17 Troponin: 1-3x normal limit - Critical Actions Critical Actions: 4-6 pts:12-16.6% risk of adverse cardiac event. Should be admitted Results - Labs CBC & Chem 7: 07/08/21 04:56 07/08/21 04:56 Labs: Laboratory Last Values WBC 4.6 K/mm3 (4.5-11.0) 07/08/21 04:56 RBC 2.11 M/mm3 (3.65-5.03) L 07/08/21 04:56 Hgb 6.6 gm/dl (10.1-14.3) L 07/08/21 04:56 Hct 20.1 % (30.3-42.9) L 07/08/21 04:56 MCV 95 fl (79-97) 07/08/21 04:56 MCH 31 pg (28-32) 07/08/21 04:56 MCHC 33 % (30-34) 07/08/21 04:56 RDW 16.4 % (13.2-15.2) H 07/08/21 04:56 Plt Count 348 K/mm3 (140-440) 07/08/21 04:56 Lymph % (Auto) 23.3 % (13.4-35.0) 07/07/21 03:21 [place] % (Auto) 10.8 % (0.0-7.3) H 07/07/21 03:21 Eos % (Auto) 0.6 % (0.0-4.3) 07/07/21 03:21 Baso % (Auto) 0.6 % (0.0-1.8) 07/07/21 03:21 Lymph # (Auto) 1.4 K/mm3 (1.2-5.4) 07/07/21 03:21 [place] # (Auto) 0.7 K/mm3 (0.0-0.8) 07/07/21 03:21 Eos # (Auto) 0.0 K/mm3 (0.0-0.4) 07/07/21 03:21 Baso # (Auto) 0.0 K/mm3 (0.0-0.1) 07/07/21 03:21 Seg Neutrophils % 64.7 % (40.0-70.0) 07/07/21 03:21 Seg Neutrophils # 3.9 K/mm3 (1.8-7.7) 07/07/21 03:21 Sodium 137 mmol/L (137-145) 07/08/21 04:56 Potassium 4.0 mmol/L (3.6-5.0) 07/08/21 04:56 Chloride 98.1 mmol/L (98-107) 07/08/21 04:56 Carbon Dioxide 31 mmol/L (22-30) H 07/08/21 04:56 Anion Gap 12 mmol/L 07/08/21 04:56 BUN 22 mg/dL (7-17) H 07/08/21 04:56 Creatinine 5.6 mg/dL (0.6-1.2) H 07/08/21 04:56 Estimated GFR 9 ml/min 07/08/21 04:56 BUN/Creatinine Ratio 4 % 07/08/21 04:56 Glucose 116 mg/dL (65-100) H 07/08/21 04:56 Hemoglobin A1c 4.7 % (4-6) 07/07/21 03:21 Calcium 9.4 mg/dL (8.4-10.2) 07/08/21 04:56 Iron 26 ug/dL (37-170) L 07/07/21 03:21 TIBC 105 mcg/dL (250-450) L 07/07/21 03:21 % Saturation 24.76 % 07/07/21 03:21 Transferrin 85 mg/dl (192-382) L 07/07/21 03:21 Total Bilirubin 0.40 mg/dL (0.1-1.2) 07/08/21 04:56 AST 32 units/L (5-40) 07/08/21 04:56 ALT 17 units/L (7-56) 07/08/21 04:56 Alkaline Phosphatase 61 units/L (35-129) 07/08/21 04:56 Troponin T 0.264 ng/mL (0.00-0.029) H* 07/06/21 15:17 NT-Pro-B Natriuret Pep > 08094 pg/mL (0-900) H 07/06/21 15:17 Total Protein 7.0 g/dL (6.3-8.2) 07/08/21 04:56 Albumin 3.0 g/dL (3.9-5) L 07/08/21 04:56 Albumin/Globulin Ratio 0.8 % 07/08/21 04:56 Triglycerides 54 mg/dL (2-149) 07/06/21 15:17 Cholesterol 100 mg/dL (50-199) 07/06/21 15:17 LDL Cholesterol Direct 32 mg/dL (50-130) L 07/06/21 15:17 HDL Cholesterol 52 mg/dL (40-59) 07/06/21 15:17 Cholesterol/HDL Ratio 1.92 % 07/06/21 15:17 Vitamin B12 581.2 pg/mL (211-911) 07/07/21 03:21 Coronavirus (PCR) Negative (Negative) 07/07/21 09:38 Hepatitis A IgM Ab Non-reactive (NonReactive) 07/07/21 10:12 Hep Bs Antigen Nonreactive (Negative) 07/07/21 10:12 Hep B Core IgM Ab Non-reactive (NonReactive) 07/07/21 10:12 Hepatitis C Antibody Non-reactive (NonReactive) 07/07/21 10:12 Microbiology: Microbiology 07/06/21 15:22 Peripheral/Venous Blood Culture - Preliminary NO GROWTH AFTER 24 HOURS 07/06/21 15:17 Peripheral/Venous Blood Culture - Preliminary NO GROWTH AFTER 24 HOURS Active Medications - Current Medications Current Medications: Generic Name Dose Route Start Last Admin Trade Name Freq PRN Reason Stop Dose Admin Acetaminophen 650 mg 07/06/21 21:44 Acetaminophen 325 Mg Tab PO Q4H PRN Pain MILD(1-3)/Fever >100.5/WOODS Albuterol 2.5 mg 07/08/21 01:16 07/08/21 05:43 Albuterol 2.5 Mg/3 Ml Nebu IH 2.5 mg Q4HRT PRN Administration Shortness Of Breath Aspirin 81 mg 07/08/21 10:00 Aspirin 81 Mg Tab Chew PO QDAY MARYCARMEN Atorvastatin Calcium 40 mg 07/07/21 22:00 07/07/21 23:05 Atorvastatin 40 Mg Tab PO 40 mg QHS MARYCARMEN Administration Azithromycin 500 mg 07/08/21 22:00 Azithromycin 250 Mg Tab PO 07/10/21 22:01 Q24H MARYCARMEN Carvedilol 3.125 mg 07/07/21 22:00 07/07/21 23:05 Carvedilol 3.125 Mg Tab PO 3.125 mg BID MARYCARMEN Administration Famotidine 10 mg 07/06/21 22:00 07/07/21 23:05 Famotidine 10 Mg Tab PO 10 mg BID MARYCARMEN Administration Furosemide 40 mg 07/07/21 06:00 07/08/21 05:55 Furosemide 40 Mg/4 Ml Inj IV 40 mg 0600,1800 MARYCARMEN Administration Heparin Sodium (Porcine) 5,000 unit 07/06/21 22:00 07/07/21 23:05 Heparin 5,000 Unit/1 Ml Vial SUB-Q 5,000 unit Q12HR MARYCARMEN Administration Hydromorphone HCl 0.5 mg 07/06/21 21:44 07/08/21 03:07 Hydromorphone 1 Mg/1 Ml Inj IV 0.5 mg Q3H PRN Administration Pain , Severe (7-10) Ceftriaxone Sodium 2 gm in 100 mls @ 200 mls/hr 07/06/21 22:00 07/08/21 01:05 Rocephin/Ns 2 Gm/100 Ml IV 07/10/21 22:29 Infused Q24H MARYCARMEN Infusion Protocol Sodium Chloride 100 mls @ 999 mls/hr 07/07/21 09:00 Nacl 0.9% IV CORNELIUS PRN Hypotension Metoclopramide HCl 2.5 mg 07/06/21 21:52 Metoclopramide 10 Mg/2 Ml Inj IV Q6H PRN Nausea And Vomiting Ondansetron HCl 4 mg 07/06/21 21:44 Ondansetron 4 Mg/2 Ml Inj IV Q8H PRN Nausea And Vomiting Oxycodone/Acetaminophen 1 tab 07/06/21 21:44 07/07/21 23:04 Oxycodone /Acetaminophen 5-325mg Tab PO 1 tab Q6H PRN Administration Pain, Moderate (4-6) Potassium Chloride 20 meq 07/06/21 22:00 07/07/21 23:29 Potassium Chloride Er 20 Meq Tab PO 20 meq Q12H MARYCARMEN Administration Sodium Chloride 10 ml 07/06/21 22:00 07/07/21 23:12 Sodium Chloride 0.9% 10 Ml Flush Syringe IV 10 ml BID MARYCARMEN Administration Sodium Chloride 10 ml 07/06/21 21:44 Sodium Chloride 0.9% 10 Ml Flush Syringe IV PRN PRN LINE FLUSH
[2021-07-08] MEDS ORDERED: SODIUM CHLORIDE 0.9% 500 ML 500 ML IV SCH (08:00)
--- NOTE | 2021-07-08 10:04 | Progress Note ---
Assessment and Plan Acute hypoxic respiratory failure COVID-19 test is negative Chronic systolic heart failure Hx of CAD s/p PCI of the proximal LAD at [facility] 05/2020 Hx of ischemic cardiomyopathy Hx of COPD ESRD on HD Prior CVA Hypertension Anemia Chronic left bundle branch block Recommendations: Dialysis for volume overload management. Guideline directed medical therapy for coronary artery disease and ischemic cardiomyopathy. Subjective Date of service: 07/08/21 Interval history: Patient is resting in bed and appears comfortable. Denies chest pain, denies SOB, and denies palpitations. Objective Vital Signs Temp Pulse Pulse Resp Resp BP BP 07/08/21 09:23 98.6 F 96 H 18 155/71 07/08/21 07:04 98.6 F 89 18 114/59 07/08/21 05:48 91 H 18 07/08/21 04:33 100.0 F H 107 H 20 125/61 07/08/21 00:26 98.8 F 107 H 22 130/64 07/07/21 22:00 98.5 F 105 H 22 142/76 07/07/21 20:45 98.8 F 94 H 18 167/79 07/07/21 20:15 93 H 150/84 07/07/21 20:00 89 148/81 07/07/21 19:45 85 136/74 07/07/21 19:30 91 H 131/88 07/07/21 19:15 91 H 154/77 07/07/21 19:00 88 155/76 07/07/21 18:45 92 H 163/80 07/07/21 18:30 96 H 166/83 07/07/21 18:15 93 H 161/83 07/07/21 18:00 94 H 162/90 07/07/21 17:45 100 H 168/99 07/07/21 17:30 94 H 170/89 07/07/21 17:15 104 H 190/110 07/07/21 17:00 98 H 174/91 07/07/21 16:45 99.0 F 97 H 18 166/87 07/07/21 16:01 101 H 18 157/83 07/07/21 15:51 103 H 27 H 157/83 07/07/21 15:41 99 H 29 H 157/83 07/07/21 15:31 96 H 23 157/83 07/07/21 15:22 88 22 139/89 07/07/21 15:21 102 H 26 H 157/83 07/07/21 15:11 92 H 23 157/83 07/07/21 15:01 90 22 154/85 07/07/21 14:51 91 H 22 157/83 07/07/21 14:41 91 H 24 157/83 07/07/21 14:31 98 H 28 H 157/83 07/07/21 14:21 91 H 22 157/83 07/07/21 14:11 100 H 27 H 157/83 07/07/21 14:01 93 H 24 157/83 07/07/21 13:51 93 H 22 157/83 07/07/21 13:41 90 24 157/83 07/07/21 13:31 87 21 157/83 07/07/21 13:21 97 H 23 160/79 07/07/21 13:11 90 22 160/79 07/07/21 13:01 80 17 160/79 07/07/21 12:51 87 20 160/79 07/07/21 12:41 85 21 160/79 07/07/21 12:34 88 19 157/89 07/07/21 12:31 93 H 24 208/73 07/07/21 12:21 90 22 208/73 07/07/21 12:11 92 H 17 208/73 07/07/21 12:01 89 24 160/79 07/07/21 11:51 89 20 208/73 07/07/21 11:41 90 22 208/73 07/07/21 11:31 92 H 24 208/73 07/07/21 11:21 88 19 155/91 07/07/21 11:11 93 H 16 155/91 07/07/21 11:01 91 H 24 155/91 07/07/21 10:55 84 22 144/71 07/07/21 10:51 89 26 H 171/63 07/07/21 10:41 93 H 21 171/63 07/07/21 10:31 93 H 26 H 156/67 07/07/21 10:20 94 H 25 H 156/67 07/07/21 10:11 93 H 27 H 156/67 07/07/21 10:01 85 23 156/67 Pulse Ox Pulse Ox 07/08/21 09:23 92 07/08/21 07:04 100 07/08/21 05:48 07/08/21 04:33 94 07/08/21 00:26 90 07/07/21 22:00 90 07/07/21 20:45 99 07/07/21 20:15 07/07/21 20:00 07/07/21 19:45 07/07/21 19:30 07/07/21 19:15 07/07/21 19:00 07/07/21 18:45 07/07/21 18:30 07/07/21 18:15 07/07/21 18:00 07/07/21 17:45 07/07/21 17:30 07/07/21 17:15 07/07/21 17:00 07/07/21 16:45 99 07/07/21 16:01 95 07/07/21 15:51 96 07/07/21 15:41 97 07/07/21 15:31 98 07/07/21 15:22 97 07/07/21 15:21 96 07/07/21 15:11 97 07/07/21 15:01 97 07/07/21 14:51 98 07/07/21 14:41 98 07/07/21 14:31 96 07/07/21 14:21 97 07/07/21 14:11 96 07/07/21 14:01 96 07/07/21 13:51 96 07/07/21 13:41 96 07/07/21 13:31 95 07/07/21 13:21 94 07/07/21 13:11 94 07/07/21 13:01 94 07/07/21 12:51 92 07/07/21 12:41 94 07/07/21 12:34 97 07/07/21 12:31 96 07/07/21 12:21 95 07/07/21 12:11 96 07/07/21 12:01 95 07/07/21 11:51 94 07/07/21 11:41 92 07/07/21 11:31 94 07/07/21 11:21 87 07/07/21 11:11 91 07/07/21 11:01 93 07/07/21 10:55 97 07/07/21 10:51 93 07/07/21 10:41 93 07/07/21 10:31 98 07/07/21 10:20 96 07/07/21 10:11 96 07/07/21 10:01 99 - Physical Examination General: No Apparent Distress HEENT: Positive: PERRL Neck: Positive: trachea midline Cardiac: Positive: Reg Rate and Rhythm Lungs: Positive: Decreased Breath Sounds Neuro: Positive: Grossly Intact Extremities: Absent: edema - Labs and Meds Cardiac Enzymes 07/08/21 Range/Units 04:56 AST 32 (5-40) units/L CBC 07/08/21 Range/Units 04:56 WBC 4.6 (4.5-11.0) K/mm3 RBC 2.11 L (3.65-5.03) M/mm3 Hgb 6.6 L (10.1-14.3) gm/dl Hct 20.1 L (30.3-42.9) % Plt Count 348 (140-440) K/mm3 Comprehensive Metabolic Panel 07/08/21 Range/Units 04:56 Sodium 137 (137-145) mmol/L Potassium 4.0 (3.6-5.0) mmol/L Chloride 98.1 (98-107) mmol/L Carbon Dioxide 31 H (22-30) mmol/L BUN 22 H (7-17) mg/dL Creatinine 5.6 H (0.6-1.2) mg/dL Glucose 116 H (65-100) mg/dL Calcium 9.4 (8.4-10.2) mg/dL AST 32 (5-40) units/L ALT 17 (7-56) units/L Alkaline Phosphatase 61 (35-129) units/L Total Protein 7.0 (6.3-8.2) g/dL Albumin 3.0 L (3.9-5) g/dL
[2021-07-08] MEDS ORDERED: CLOPIDOGREL 75 MG TAB PO SCH (11:00)
[2021-07-08] MEDS: ASPIRIN 81 MG TAB CHEW PO SCH (11:13)
[2021-07-08] MEDS: carvediloL 3.125 MG TAB PO SCH ×2 (11:13→21:16)
[2021-07-08] MEDS: FAMOTIDINE 10 MG TAB PO SCH ×2 (11:13→21:18)
[2021-07-08] MEDS: POTASSIUM CHLORIDE ER 20 MEQ TAB PO SCH ×2 (11:13→21:27)
[2021-07-08] MEDS: HEPARIN 5,000 UNIT/1 ML VIAL SUB-Q SCH ×2 (11:13→21:18)
[2021-07-08] MEDS: oxyCODONE /ACETAMINOPHEN 5-325MG TAB PO PRN ×2 (11:45→21:18)
--- NOTE | 2021-07-08 18:22 | Progress Note ---
Assessment and Plan - Patient Problems (1) Acute respiratory failure with hypoxia Current Visit: Yes Status: Resolved Plan to address problem: Continue respiratory support, supplemental oxygen further treatment by pulmonary. repeat chest x-ray. May need to dialyze 2 days in a row if still showing pulmonary edema. (2) Suspected COVID-19 virus infection Current Visit: Yes Status: Acute Plan to address problem: Covid 19 PCR negative (3) Anemia Current Visit: Yes Status: Chronic Qualifiers: Anemia type: due to chronic kidney disease Plan to address problem: continue erythropoietin on dialysis and follow-up hemoglobin (4) End-stage renal disease on hemodialysis Current Visit: Yes Status: Chronic Plan to address problem: hemodialysis again in the morning. Subjective Date of service: 07/08/21 Principal diagnosis: end-stage renal disease with fluid overload, cardiomyopathy Interval history: Patient seen lying in bed. Complains of shortness of breath. No chest pain. No nausea or vomiting. No dizziness Objective - Exam Narrative Exam: elderly female lying in bed in no acute distress HEENT: Normocephalic atraumatic, pupils equal round reactive to light Neck: Supple, no venous distention, no goiter CVS: S1S2 RRR No murmur, No rub or gallop Lungs: Clear to auscultation breath sounds diminished in lower zones, no use of accessory muscles of respiration Abdomen: Full, soft, nontender, no organomegaly no bruit, bowel sounds are present Extremities: No edema, no cyanosis or clubbing Urinary: Deferred Musculo-skeletal: No joint deformities or swelling Neuro: Awake, alert, no focal deficits - Vital Signs Vital signs: Vital Signs - 12hr 07/08/21 07/08/21 07/08/21 07:04 09:23 10:00 Temperature 98.6 F 98.6 F Pulse Rate 89 96 H Respiratory 18 18 Rate Respiratory 22 Rate [Right Lower Posterior Calf Soft Tissue] Blood Pressure 155/71 Blood Pressure 114/59 [Right] O2 Sat by Pulse 100 92 Oximetry 07/08/21 07/08/21 07/08/21 11:45 11:58 15:35 Temperature 98.4 F Pulse Rate 99 H Respiratory 22 18 22 Rate Respiratory Rate [Right Lower Posterior Calf Soft Tissue] Blood Pressure 149/71 Blood Pressure [Right] O2 Sat by Pulse 94 96 Oximetry 07/08/21 17:09 Temperature 98.4 F Pulse Rate 89 Respiratory 18 Rate Respiratory Rate [Right Lower Posterior Calf Soft Tissue] Blood Pressure 152/75 Blood Pressure [Right] O2 Sat by Pulse 96 Oximetry - Lab 07/08/21 04:56 07/08/21 04:56 Most recent lab results Calcium 9.4 mg/dL (8.4-10.2) 07/08/21 04:56 Medications & Allergies - Medications Allergies/Adverse Reactions: Allergies No Known Allergies Allergy (Unverified 07/06/21 15:00) Home Medications: Home Medications Medication Instructions Recorded Confirmed Last Taken Type Albuterol Sulfate [Proair 90 mcg IH 07/07/21 Unknown History Respiclick] AtorvaSTATin [Lipitor] 40 mg PO QHS 07/07/21 07/07/21 Unknown History Clopidogrel [Plavix] 75 mg PO QDAY 07/07/21 07/07/21 Unknown History Ergocalciferol (Vitamin D2) 1,250 mcg PO 07/07/21 Unknown History [Drisdol] Folic Acid 07/07/21 Unknown History Mirtazapine [Remeron] 7.5 07/07/21 Unknown History NIFEdipine [Nifedipine ER] 90 mg PO 07/07/21 Unknown History Omeprazole 40 mg PO 07/07/21 Unknown History Sennosides [Senna] 8.6 mg PO 07/07/21 Unknown History Toprol Xl 50 mg 07/07/21 Unknown History traMADoL [Ultram] 50 mg PO Q12HR 07/07/21 07/07/21 Unknown History Active Medications: Generic Name Dose Route Start Last Admin Trade Name Freq PRN Reason Stop Dose Admin Acetaminophen 650 mg 07/06/21 21:44 Acetaminophen 325 Mg Tab PO Q4H PRN Pain MILD(1-3)/Fever >100.5/WOODS Albuterol 2.5 mg 07/08/21 01:16 07/08/21 05:43 Albuterol 2.5 Mg/3 Ml Nebu IH 2.5 mg Q4HRT PRN Administration Shortness Of Breath Aspirin 81 mg 07/08/21 10:00 07/08/21 11:13 Aspirin 81 Mg Tab Chew PO 81 mg QDAY MARYCARMEN Administration Atorvastatin Calcium 40 mg 07/07/21 22:00 07/07/21 23:05 Atorvastatin 40 Mg Tab PO 40 mg QHS MARYCARMEN Administration Azithromycin 500 mg 07/08/21 22:00 Azithromycin 250 Mg Tab PO 07/10/21 22:01 Q24H MARYCARMEN Carvedilol 3.125 mg 07/07/21 22:00 07/08/21 11:13 Carvedilol 3.125 Mg Tab PO 3.125 mg BID MARYCARMEN Administration Clopidogrel Bisulfate 75 mg 07/08/21 11:00 07/08/21 11:13 Clopidogrel 75 Mg Tab PO 75 mg QDAY MARYCARMEN Administration Famotidine 10 mg 07/06/21 22:00 07/08/21 11:13 Famotidine 10 Mg Tab PO 10 mg BID MARYCARMEN Administration Heparin Sodium (Porcine) 5,000 unit 07/06/21 22:00 07/08/21 11:13 Heparin 5,000 Unit/1 Ml Vial SUB-Q 5,000 unit Q12HR MARYCARMEN Administration Hydromorphone HCl 0.5 mg 07/06/21 21:44 07/08/21 03:07 Hydromorphone 1 Mg/1 Ml Inj IV 0.5 mg Q3H PRN Administration Pain , Severe (7-10) Ceftriaxone Sodium 2 gm in 100 mls @ 200 mls/hr 07/06/21 22:00 07/08/21 01:05 Rocephin/Ns 2 Gm/100 Ml IV 07/10/21 22:29 Infused Q24H MARYCARMEN Infusion Protocol Sodium Chloride 100 mls @ 999 mls/hr 07/07/21 09:00 Nacl 0.9% IV CORNELIUS PRN Hypotension Metoclopramide HCl 2.5 mg 07/06/21 21:52 Metoclopramide 10 Mg/2 Ml Inj IV Q6H PRN Nausea And Vomiting Ondansetron HCl 4 mg 07/06/21 21:44 Ondansetron 4 Mg/2 Ml Inj IV Q8H PRN Nausea And Vomiting Oxycodone/Acetaminophen 1 tab 07/06/21 21:44 07/08/21 11:45 Oxycodone /Acetaminophen 5-325mg Tab PO 1 tab Q6H PRN Administration Pain, Moderate (4-6) Potassium Chloride 20 meq 07/06/21 22:00 07/08/21 11:13 Potassium Chloride Er 20 Meq Tab PO 20 meq Q12H MARYCARMEN Administration Sodium Chloride 10 ml 07/06/21 22:00 07/07/21 23:12 Sodium Chloride 0.9% 10 Ml Flush Syringe IV 10 ml BID MARYCARMEN Administration Sodium Chloride 10 ml 07/06/21 21:44 Sodium Chloride 0.9% 10 Ml Flush Syringe IV PRN PRN LINE FLUSH
--- NOTE | 2021-07-08 19:07 | Consultation ---
History of Present Illness Consult date: 07/08/21 - History of present illness History of present illness: 75 yo non-ambulatory female with 2 week h/o right achilles wound. She is not diabetic and she does not smoke. Past History Past Medical History: COPD, ESRD, heart failure, hypertension Social history: no significant social history Family history: no significant family history Medications and Allergies Allergies Allergy/AdvReac Type Severity Reaction Status Date / Time No Known Allergies Allergy Unverified 07/06/21 15:00 Home Medications Medication Instructions Recorded Confirmed Last Taken Type Albuterol Sulfate [Proair 90 mcg IH 07/07/21 Unknown History Respiclick] AtorvaSTATin [Lipitor] 40 mg PO QHS 07/07/21 07/07/21 Unknown History Clopidogrel [Plavix] 75 mg PO QDAY 07/07/21 07/07/21 Unknown History Ergocalciferol (Vitamin D2) 1,250 mcg PO 07/07/21 Unknown History [Drisdol] Folic Acid 07/07/21 Unknown History Mirtazapine [Remeron] 7.5 07/07/21 Unknown History NIFEdipine [Nifedipine ER] 90 mg PO 07/07/21 Unknown History Omeprazole 40 mg PO 07/07/21 Unknown History Sennosides [Senna] 8.6 mg PO 07/07/21 Unknown History Toprol Xl 50 mg 07/07/21 Unknown History traMADoL [Ultram] 50 mg PO Q12HR 07/07/21 07/07/21 Unknown History Active Meds: Active Medications Acetaminophen (Acetaminophen 325 Mg Tab) 650 mg PO Q4H PRN PRN Reason: Pain MILD(1-3)/Fever >100.5/WOODS Albuterol (Albuterol 2.5 Mg/3 Ml Nebu) 2.5 mg IH Q4HRT PRN PRN Reason: Shortness Of Breath Last Admin: 07/08/21 05:43 Dose: 2.5 mg Documented by: Aspirin (Aspirin 81 Mg Tab Chew) 81 mg PO QDAY [facility] Last Admin: 07/08/21 11:13 Dose: 81 mg Documented by: Atorvastatin Calcium (Atorvastatin 40 Mg Tab) 40 mg PO QHS [facility] Last Admin: 07/07/21 23:05 Dose: 40 mg Documented by: Azithromycin (Azithromycin 250 Mg Tab) 500 mg PO Q24H [facility] Stop: 07/10/21 22:01 Carvedilol (Carvedilol 3.125 Mg Tab) 3.125 mg PO BID [facility] Last Admin: 07/08/21 11:13 Dose: 3.125 mg Documented by: Clopidogrel Bisulfate (Clopidogrel 75 Mg Tab) 75 mg PO QDAY [facility] Last Admin: 07/08/21 11:13 Dose: 75 mg Documented by: Famotidine (Famotidine 10 Mg Tab) 10 mg PO BID [facility] Last Admin: 07/08/21 11:13 Dose: 10 mg Documented by: Heparin Sodium (Porcine) (Heparin 5,000 Unit/1 Ml Vial) 5,000 unit SUB-Q Q12HR [facility] Last Admin: 07/08/21 11:13 Dose: 5,000 unit Documented by: Hydromorphone HCl (Hydromorphone 1 Mg/1 Ml Inj) 0.5 mg IV Q3H PRN PRN Reason: Pain , Severe (7-10) Last Admin: 07/08/21 03:07 Dose: 0.5 mg Documented by: Ceftriaxone Sodium (Rocephin/Ns 2 Gm/100 Ml) 2 gm in 100 mls @ 200 mls/hr IV Q24H [facility]; Protocol Stop: 07/10/21 22:29 Last Infusion: 07/08/21 01:05 Dose: Infused Documented by: Sodium Chloride (Nacl 0.9%) 100 mls @ 999 mls/hr IV CORNELIUS PRN PRN Reason: Hypotension Metoclopramide HCl (Metoclopramide 10 Mg/2 Ml Inj) 2.5 mg IV Q6H PRN PRN Reason: Nausea And Vomiting Ondansetron HCl (Ondansetron 4 Mg/2 Ml Inj) 4 mg IV Q8H PRN PRN Reason: Nausea And Vomiting Oxycodone/Acetaminophen (Oxycodone /Acetaminophen 5-325mg Tab) 1 tab PO Q6H PRN PRN Reason: Pain, Moderate (4-6) Last Admin: 07/08/21 11:45 Dose: 1 tab Documented by: Potassium Chloride (Potassium Chloride Er 20 Meq Tab) 20 meq PO Q12H [facility] Last Admin: 07/08/21 11:13 Dose: 20 meq Documented by: Sodium Chloride (Sodium Chloride 0.9% 10 Ml Flush Syringe) 10 ml IV BID [facility] Last Admin: 07/07/21 23:12 Dose: 10 ml Documented by: Sodium Chloride (Sodium Chloride 0.9% 10 Ml Flush Syringe) 10 ml IV PRN PRN PRN Reason: LINE FLUSH Review of Systems All systems: negative (none) Exam Vital Signs Pulse Ox 100 07/06/21 15:00 - General physical appearance Positive: well developed, well nourished, no distress - Eyes Positive: PERRL, normal occular movement - ENT Positive: normal pinna, normal nares, normal mucosa, no hearing loss, no congestion - Neck Positive: no masses, no bruits, trachea midline, no venous distension - Respiratory Positive: normal expansion, normal respiratory effort, clear to auscultation - Cardiovascular Rhythm: regular Heart Sounds: Present: S1 & S2. Absent: rub, click - Extremities Extremities: no ischemia, pulses symmetrical, No edema - Breasts Breasts: normal, no mass, no skin changes - Abdomen Abdomen: Present: soft, bowel sounds normal. Absent: tender, distended Hernia: none - Genitourinary Male Genitourinary: normal Female Genitourinary: normal - Integumentary no rash, no growths, no abnormal pigmentation, other (There is a 7.5 X 3 X 0.3 cm wound of the right achilles area with exposed, dessicated achilles tendon. There are no signs of infection. Right DP pulse is non-palpable.) - Neurologic Neurologic: alert and oriented to time, place and person, motor strength and sensation are grossly intact - Musculoskeletal normal gait, normal posture - Psychiatric Psychiatric: appropriate mood/affect, intact judgment & insight Results - Labs 07/08/21 04:56 07/08/21 04:56 Abnormal lab results 07/08/21 07/08/21 07/08/21 Range/Units 04:56 04:56 15:30 RBC 2.11 L (3.65-5.03) M/mm3 Hgb 6.6 L (10.1-14.3) gm/dl Hct 20.1 L (30.3-42.9) % RDW 16.4 H (13.2-15.2) % Carbon Dioxide 31 H (22-30) mmol/L BUN 22 H (7-17) mg/dL Creatinine 5.6 H (0.6-1.2) mg/dL Glucose 116 H (65-100) mg/dL Albumin 3.0 L (3.9-5) g/dL Crossmatch See Detail Diabetes panel 07/08/21 Range/Units 04:56 Sodium 137 (137-145) mmol/L Potassium 4.0 (3.6-5.0) mmol/L Chloride 98.1 (98-107) mmol/L Carbon Dioxide 31 H (22-30) mmol/L BUN 22 H (7-17) mg/dL Creatinine 5.6 H (0.6-1.2) mg/dL Glucose 116 H (65-100) mg/dL Calcium 9.4 (8.4-10.2) mg/dL AST 32 (5-40) units/L ALT 17 (7-56) units/L Alkaline Phosphatase 61 (35-129) units/L Total Protein 7.0 (6.3-8.2) g/dL Albumin 3.0 L (3.9-5) g/dL Calcium panel 07/08/21 Range/Units 04:56 Calcium 9.4 (8.4-10.2) mg/dL Albumin 3.0 L (3.9-5) g/dL Pituitary panel 07/08/21 Range/Units 04:56 Sodium 137 (137-145) mmol/L Potassium 4.0 (3.6-5.0) mmol/L Chloride 98.1 (98-107) mmol/L Carbon Dioxide 31 H (22-30) mmol/L BUN 22 H (7-17) mg/dL Creatinine 5.6 H (0.6-1.2) mg/dL Glucose 116 H (65-100) mg/dL Calcium 9.4 (8.4-10.2) mg/dL Adrenal panel 07/08/21 Range/Units 04:56 Sodium 137 (137-145) mmol/L Potassium 4.0 (3.6-5.0) mmol/L Chloride 98.1 (98-107) mmol/L Carbon Dioxide 31 H (22-30) mmol/L BUN 22 H (7-17) mg/dL Creatinine 5.6 H (0.6-1.2) mg/dL Glucose 116 H (65-100) mg/dL Calcium 9.4 (8.4-10.2) mg/dL Total Bilirubin 0.40 (0.1-1.2) mg/dL AST 32 (5-40) units/L ALT 17 (7-56) units/L Alkaline Phosphatase 61 (35-129) units/L Total Protein 7.0 (6.3-8.2) g/dL Albumin 3.0 L (3.9-5) g/dL Assessment and Plan - Patient Problems (1) Skin ulcer of right calf with necrosis of muscle Current Visit: Yes Status: Acute Plan to address problem: 1) RLE arterial dopplers 2) The right achilles tendon will need to be debrided. 3) Off loading 4) Wound care nurse consult 5) Intense nutritional support
[2021-07-08] MEDS: cefTRIAXone/NS 2 GM/100 ML 2 GM/100 ML BAG IV SCH (21:19)
[2021-07-08] MEDS ORDERED: AZITHROMYCIN 250 MG TAB PO SCH (22:00)
[2021-07-08] MEDS ORDERED: SODIUM CHLORIDE 0.9% 500 ML IVPB IV ONE (23:00)
[2021-07-09] MEDS: HYDROmorphone 1 MG/1 ML INJ IV PRN (00:47)
[2021-07-09 06:38] LABS: Hematocrit 23.9 % (30.3-42.9); Hemoglobin 7.9 gm/dl (10.1-14.3); Mean Corpuscular HGB Conc 33 % (30-34); Mean Corpuscular Volume 98 fl (79-97); Platelet Count 345 K/mm3 (140-440); Red Blood Count 2.45 M/mm3 (3.65-5.03); Red Cell Distribution Width 16.3 % (13.2-15.2)
[2021-07-09 07:04] LABS: Calcium 10.4 mg/dL (8.4-10.2)
--- NOTE | 2021-07-09 08:25 | Progress Note ---
Assessment and Plan - Patient Problems (1) Acute respiratory failure with hypoxia Status: Resolved Plan to address problem: Respiratory status improved today. Continue supplemental oxygen and further treatment by pulmonary. Repeat chest x-ray after dialysis. May need to dialyze 2 days in a row if still showing pulmonary edema. (2) Suspected COVID-19 virus infection Status: Acute Plan to address problem: Covid 19 PCR negative (3) Anemia Status: Chronic Qualifiers: Anemia type: due to chronic kidney disease Plan to address problem: continue erythropoietin on dialysis and follow-up hemoglobin (4) End-stage renal disease on hemodialysis Status: Chronic Plan to address problem: hemodialysis today for fluid removal and solute clearance. Reevaluate Subjective Date of service: 07/10/21 Principal diagnosis: end-stage renal disease with fluid overload, cardiomyopathy Interval history: Patient seen lying in bed. Feels better. Denies shortness of breath. No chest pain. No nausea or vomiting. No dizziness Objective - Exam Narrative Exam: elderly female lying in bed in no acute distress HEENT: Normocephalic atraumatic, pupils equal round reactive to light Neck: Supple, no venous distention, no goiter CVS: S1S2 RRR No murmur, No rub or gallop Lungs: Fine rales in lower zones, no use of accessory muscles of respiration Abdomen: Full, soft, nontender, no organomegaly no bruit, bowel sounds are present Extremities: No edema, no cyanosis or clubbing Urinary: Deferred Musculo-skeletal: No joint deformities or swelling Neuro: Awake, alert, no focal deficits - Vital Signs Vital signs: Vital Signs - 12hr 07/08/21 07/08/21 07/08/21 20:34 23:22 23:33 Temperature 98.1 F 98.5 F Pulse Rate 87 86 Respiratory 22 18 18 Rate Blood Pressure 124/73 128/81 Blood Pressure [Right] O2 Sat by Pulse 96 97 99 Oximetry 07/08/21 07/09/21 07/09/21 23:37 00:07 00:12 Temperature 98.2 F 98.6 F 98.6 F Pulse Rate 85 86 68 Respiratory 18 18 18 Rate Blood Pressure 130/82 126/74 Blood Pressure 131/68 [Right] O2 Sat by Pulse 100 99 Oximetry 07/09/21 07/09/21 07/09/21 00:37 01:07 01:37 Temperature 98.5 F 98.2 F 98.5 F Pulse Rate 74 74 72 Respiratory 18 18 18 Rate Blood Pressure 128/72 126/74 124/70 Blood Pressure [Right] O2 Sat by Pulse 99 100 100 Oximetry 07/09/21 07/09/21 07/09/21 02:07 04:07 07:17 Temperature 98.2 F 98.0 F Pulse Rate 75 74 Respiratory 18 18 Rate Blood Pressure 123/75 163/96 152/75 Blood Pressure [Right] O2 Sat by Pulse 100 100 Oximetry 07/09/21 07/09/21 07/09/21 07:18 08:07 08:09 Temperature 97.7 F Pulse Rate Respiratory 18 Rate Blood Pressure 152/75 Blood Pressure [Right] O2 Sat by Pulse 95 Oximetry - Lab 07/09/21 05:12 07/09/21 05:12 Most recent lab results Calcium 10.4 mg/dL (8.4-10.2) H 07/09/21 05:12 Medications & Allergies - Medications Allergies/Adverse Reactions: Allergies No Known Allergies Allergy (Unverified 07/06/21 15:00) Home Medications: Home Medications Medication Instructions Recorded Confirmed Last Taken Type Albuterol Sulfate [Proair 90 mcg IH 07/07/21 Unknown History Respiclick] AtorvaSTATin [Lipitor] 40 mg PO QHS 07/07/21 07/07/21 Unknown History Clopidogrel [Plavix] 75 mg PO QDAY 07/07/21 07/07/21 Unknown History Ergocalciferol (Vitamin D2) 1,250 mcg PO DAILY 07/07/21 07/09/21 Unknown History [Drisdol] Folic Acid 1 tab PO DAILY 07/07/21 07/09/21 Unknown History Mirtazapine [Remeron] 7.5 tab PO DAILY 07/07/21 07/09/21 Unknown History NIFEdipine [Nifedipine ER] 90 mg PO DAILY 07/07/21 07/09/21 Unknown History Omeprazole 40 mg PO DAILY 07/07/21 07/09/21 Unknown History Sennosides [Senna] 8.6 mg PO HS 07/07/21 07/09/21 Unknown History Toprol Xl 50 mg PO DAILY 07/07/21 07/09/21 Unknown History traMADoL [Ultram 50 MG tab] 50 mg PO Q12HR 07/07/21 07/07/21 Unknown History Azithromycin [Zithromax TAB] 500 mg PO Q24H #7 tablet 07/09/21 Unknown Rx Famotidine [Pepcid] 10 mg PO BID #60 tablet 07/09/21 Unknown Rx Potassium Chloride [K-Dur] 20 meq PO Q12H #20 tablet 07/09/21 Unknown Rx oxyCODONE /ACETAMINOPHEN [Percocet 1 tab PO Q6H PRN #14 tablet 07/09/21 Unknown Rx 5/325 mg] Active Medications: Generic Name Dose Route Start Last Admin Trade Name Freq PRN Reason Stop Dose Admin Acetaminophen 650 mg 07/06/21 21:44 Acetaminophen 325 Mg Tab PO Q4H PRN Pain MILD(1-3)/Fever >100.5/WOODS Albuterol 2.5 mg 07/08/21 01:16 07/08/21 05:43 Albuterol 2.5 Mg/3 Ml Nebu IH 2.5 mg Q4HRT PRN Administration Shortness Of Breath Aspirin 81 mg 07/08/21 10:00 07/08/21 11:13 Aspirin 81 Mg Tab Chew PO 81 mg QDAY MARYCARMEN Administration Atorvastatin Calcium 40 mg 07/07/21 22:00 07/08/21 21:16 Atorvastatin 40 Mg Tab PO 40 mg QHS MARYCARMEN Administration Azithromycin 500 mg 07/08/21 22:00 07/08/21 21:17 Azithromycin 250 Mg Tab PO 07/10/21 22:01 500 mg Q24H MARYCARMEN Administration Carvedilol 3.125 mg 07/07/21 22:00 07/08/21 21:16 Carvedilol 3.125 Mg Tab PO 3.125 mg BID MARYCARMEN Administration Clopidogrel Bisulfate 75 mg 07/08/21 11:00 07/08/21 11:13 Clopidogrel 75 Mg Tab PO 75 mg QDAY MARYCARMEN Administration Famotidine 10 mg 07/06/21 22:00 07/08/21 21:18 Famotidine 10 Mg Tab PO 10 mg BID MARYCARMEN Administration Heparin Sodium (Porcine) 5,000 unit 07/06/21 22:00 07/08/21 21:18 Heparin 5,000 Unit/1 Ml Vial SUB-Q 5,000 unit Q12HR MARYCARMEN Administration Hydromorphone HCl 0.5 mg 07/06/21 21:44 07/09/21 00:47 Hydromorphone 1 Mg/1 Ml Inj IV 0.5 mg Q3H PRN Administration Pain , Severe (7-10) Ceftriaxone Sodium 2 gm in 100 mls @ 200 mls/hr 07/06/21 22:00 07/08/21 21:54 Rocephin/Ns 2 Gm/100 Ml IV 07/10/21 22:29 Infused Q24H [facility]CARM[facility] Infusion Protocol Sodium Chloride 100 mls @ 999 mls/hr 07/07/21 09:00 Nacl 0.9% IV CORNELIUS PRN Hypotension Metoclopramide HCl 2.5 mg 07/06/21 21:52 Metoclopramide 10 Mg/2 Ml Inj IV Q6H PRN Nausea And Vomiting Ondansetron HCl 4 mg 07/06/21 21:44 Ondansetron 4 Mg/2 Ml Inj IV Q8H PRN Nausea And Vomiting Oxycodone/Acetaminophen 1 tab 07/06/21 21:44 07/08/21 21:18 Oxycodone /Acetaminophen 5-325mg Tab PO 1 tab Q6H PRN Administration Pain, Moderate (4-6) Potassium Chloride 20 meq 07/06/21 22:00 07/08/21 21:27 Potassium Chloride Er 20 Meq Tab PO 20 meq Q12H MARYCARMEN Administration Sodium Chloride 10 ml 07/06/21 22:00 07/08/21 21:55 Sodium Chloride 0.9% 10 Ml Flush Syringe IV 10 ml BID M[facility]CARM[facility] Administration Sodium Chloride 10 ml 07/06/21 21:44 Sodium Chloride 0.9% 10 Ml Flush Syringe IV PRN PRN LINE FLUSH
--- NOTE | 2021-07-09 09:09 | XRay Report ---
CHEST 2 VIEWS INDICATION / CLINICAL INFORMATION: Dyspnea. COMPARISON: 07/06/2021 FINDINGS: SUPPORT DEVICES: None. HEART / MEDIASTINUM: Stable cardiomegaly. LUNGS / PLEURA: Stable mild interstitial edema. No significant effusion. ADDITIONAL FINDINGS: No significant additional findings. IMPRESSION: 1. No adverse change from the prior exam Signer Name: Fabián Jacob MD Signed: 07/09/2021 9:05 AM Workstation Name: [id number]
--- NOTE | 2021-07-09 09:40 | Progress Note ---
<LUCIE FITZGERALD - Last Filed: 07/09/21 09:38> Assessment and Plan Acute hypoxic respiratory failure COVID-19 test is negative Chronic systolic heart failure Hx of CAD s/p PCI of the proximal LAD at [facility] 05/2020 Hx of ischemic cardiomyopathy Hx of COPD ESRD on HD Prior CVA Hypertension Anemia Chronic left bundle branch block Recommendations: Dialysis for volume overload management. Guideline directed medical therapy for coronary artery disease and ischemic cardiomyopathy. Otherwise, conservative cardiac management. Subjective Date of service: 07/09/21 Principal diagnosis: end-stage renal disease with fluid overload, cardiomyopathy Interval history: No cardiac events. Objective Vital Signs Temp Pulse Resp Resp BP BP Pulse Ox 07/09/21 08:09 95 07/09/21 08:07 97.7 F 07/09/21 07:18 18 152/75 07/09/21 07:17 74 152/75 100 07/09/21 04:07 98.0 F 18 163/96 07/09/21 02:07 98.2 F 75 18 123/75 100 07/09/21 01:37 98.5 F 72 18 124/70 100 07/09/21 01:07 98.2 F 74 18 126/74 100 07/09/21 00:37 98.5 F 74 18 128/72 99 07/09/21 00:12 98.6 F 68 18 131/68 07/09/21 00:07 98.6 F 86 18 126/74 99 07/08/21 23:37 98.2 F 85 18 130/82 100 07/08/21 23:33 98.5 F 86 18 128/81 99 07/08/21 23:22 98.1 F 87 18 124/73 97 07/08/21 20:34 22 96 07/08/21 17:09 98.4 F 89 18 152/75 96 07/08/21 15:35 22 96 07/08/21 11:58 98.4 F 99 H 18 149/71 94 07/08/21 11:45 22 07/08/21 10:00 22 - Physical Examination General: No Apparent Distress HEENT: Positive: PERRL Neck: Positive: trachea midline Cardiac: Positive: Reg Rate and Rhythm Lungs: Positive: Decreased Breath Sounds Neuro: Positive: Grossly Intact Extremities: Absent: edema - Labs and Meds CBC 07/09/21 Range/Units 05:12 WBC 4.4 L (4.5-11.0) K/mm3 RBC 2.45 L (3.65-5.03) M/mm3 Hgb 7.9 L (10.1-14.3) gm/dl Hct 23.9 L (30.3-42.9) % Plt Count 345 (140-440) K/mm3 Comprehensive Metabolic Panel 07/09/21 Range/Units 05:12 Sodium 142 (137-145) mmol/L Potassium 4.9 D (3.6-5.0) mmol/L Chloride 103.5 (98-107) mmol/L Carbon Dioxide 30 (22-30) mmol/L BUN 31 H (7-17) mg/dL Creatinine 7.5 H (0.6-1.2) mg/dL Glucose 77 (65-100) mg/dL Calcium 10.4 H (8.4-10.2) mg/dL <CHRISTEN WALKER - Last Filed: 07/14/21 07:28> Subjective Interval history: I SAW THIS PT & AGREE WITH THE Dx & Tx PLAN.
[2021-07-09] MEDS: ASPIRIN 81 MG TAB CHEW PO SCH (11:20)
[2021-07-09] MEDS: FAMOTIDINE 10 MG TAB PO SCH (11:21)
[2021-07-09] MEDS: carvediloL 3.125 MG TAB PO SCH (11:21)
[2021-07-09] MEDS: HEPARIN 5,000 UNIT/1 ML VIAL SUB-Q SCH (11:21)
[2021-07-09] MEDS: POTASSIUM CHLORIDE ER 20 MEQ TAB PO SCH (11:21)
--- NOTE | 2021-07-09 12:14 | Discharge Summary ---
Providers - Providers Date of Admission: 07/06/21 17:18 Attending physician: BELEN HARDEN MD 07/06/21 21:44 Consult to Physician [CONS] Routine Comment: Consulting Provider: YUKI CEDENO Physician Instructions: Reason For Exam: CHF exacerbation 07/07/21 06:58 Consult to Physician [CONS] Routine Comment: Consulting Provider: ANCELMO GONZALEZ Physician Instructions: Reason For Exam: ESRD/volume overload/CHF 07/07/21 15:20 Physical Therapy Evaluation and Treat [CONS] Urgent Comment: Reason For Exam: Tp assess mobility status 07/07/21 15:21 Occupational Therapy Evaluate and Treat [CONS] Urgent Comment: Reason For Exam: To assess ADL status 07/08/21 05:14 Consult to Wound/ET Nurse [CONS] Routine Reason For Exam: wound eval Primary care physician: FUND ACCOUNTANT Hospitalization Reason for admission: shortness of breath Condition: Stable Hospital course: 75-year-old -[place] female with multiple medical problems including end-stage renal disease on hemodialysis: Chronic respiratory failure on 2 L nasal cannula oxygen, pulmonary hypertension and hypertension sent from [facility] for increasing shortness of breath for the past 3 days. Patient is normally on 2 L nasal cannula oxygen. Patient has been having increased oxygen requirements. Around 11 AM today patient had chest discomfort and orthopnea. Oxygen saturations were low in the mid 85's. No fever or chills. Patient was put on nonrebreather by EMS. Patient was sent in for evaluation for increasing shortness of breath. No fever or chills. Recent exposure to coronavirus from 9 patient is in [facility]. Patient was diagnosed with Covid infection in March 07February. She received 2 doses of vaccination in February. Patient's primary care physician is Dr. Dawn and hot mill shearer is Dr. Ames and her hemodialysis is on Tuesday. Kidney disease [facility]. Patient has been on dialysis for 5 years and does not make any urine. Patient also has a history of COPD. 07/07: Continue supportive care, wean oxygen as tolerated, Room Service Supervisor and [employer]r [employer] input noted, Awaiting Covid test. will obtain wound management for lower ext lesion and evaluate for Pressure ulcer. FAMILY Contact for daughter [phone]- Will call in am once all records complete. 07/08: Family reported to case management the do not want the patient to go back to the facility where she came from. They opted for home hospice and to continue dialysis. Per brake repairer [employer] "Patient's echocardiogram shows a persistent ischemic cardiomyopathy, with left ventricular ejection fraction 20 to 25%. There is also heavily calcified mitral valve annulus, thickened mitral valve with a mean mitral gradient of 8.9, suggesting mild mitral stenosis. She looks and feels better, after dialysis management of fluid overload and decompensated heart failure. ..... We will continue guideline directed medical therapy, and consider noninvasive ischemia assessment after fluid overload is optimally resolved." I believe the recommendation is appropriate considering family's decision. We also discussed with the patient and anticipate discharge in 24 to 48 hours 07/09: Discussed with surgery, outpatient debridement at wound clinic Patient stable for discharge today after HD She is going with home hospice (1) Acute respiratory failure with hypoxia Current Visit: Yes Status: Acute Plan to address problem: Patient hypoxic and on nonrebreather secondary to volume overload and CHF exacerbation Pneumonia to be excluded but unlikely (2) Acute exacerbation of CHF (congestive heart failure) Current Visit: Yes Status: Acute Qualifiers: Heart failure type: combined systolic and diastolic Qualified Code(s): I50.43 - Acute on chronic combined systolic (congestive) and diastolic (congestive) heart failure Plan to address problem: Patient needs emergent hemodialysis and increased ultrafiltration and volume removal BNP is more than 35,000 (3) Suspected COVID-19 virus infection Current Visit: Yes Status: Acute Plan to address problem: Patient is vaccinated Coronavirus PCR requested just because he is exposed to other [facility] residents (4) End-stage renal disease on hemodialysis Current Visit: Yes Status: Chronic Plan to address problem: Continue hemodialysis as per schedule (5) Pulmonary hypertension Current Visit: Yes Status: Chronic Plan to address problem: Treat pulmonary hypertension (6) Hypertension Current Visit: Yes Status: Chronic Qualifiers: Hypertension type: primary hypertension Qualified Code(s): I10 - Essential (primary) hypertension Plan to address problem: Continue antihypertensives (7) Hyponatremia Current Visit: Yes Status: Acute Plan to address problem: Dilational Should correct with correction of increased ultrafiltration (8) NSTEMI (non-ST elevated myocardial infarction) Current Visit: Yes Status: Chronic Plan to address problem: Secondary to troponin leak CK and CK-MB requested to stratify (9) Malnutrition Current Visit: Yes Status: Chronic Qualifiers: Protein-calorie malnutrition severity: mild Plan to address problem: Dietary supplements Albumin of 3.3 (10) Anemia Current Visit: Yes Status: Chronic Qualifiers: Anemia type: due to chronic kidney disease Plan to address problem: Secondary to end-stage renal disease Disposition: 50 HOSPICE/HOME Final Discharge Diagnosis (Prints w/discharge instructions): Acute exacerbation of CHF (congestive heart failure) combined systolic and diastolic Time spent for discharge: 35 mins Core Measure Documentation - Palliative Care Palliative Care/ Comfort Measures: Hospice Care - Core Measures Any of the following diagnoses?: heart failure - Heart Failure Discharge Requirements ANDREW/ARB for LVSD if EF <40%: Not Applicable Reason for no ANDREW/ARB: Renal impairment Beta harvey at discharge: Yes Exam - Physical Exam Narrative exam: General appearance: Present: Resting comfortably, well-nourished, on NC - EENT Eyes: Present: PERRL ENT: hearing intact, clear oral mucosa - Neck Neck: Present: supple, normal ROM - Respiratory Respiratory effort: normal Respiratory: bilateral: CTA, rales - Cardiovascular Heart rate: 78 Rhythm: regular Heart Sounds: Present: S1 & S2. Absent: rub, click - Extremities Extremities: no ischemia, pulses intact, pulses symmetrical, No edema Peripheral Pulses: within normal limits - Abdominal General gastrointestinal: Present: soft, non-tender, non-distended, normal bowel sounds Female genitourinary: Present: normal - Integumentary Integumentary: Present: left lower ext wound, warm, dry - Musculoskeletal Musculoskeletal: gait normal, strength equal bilaterally - Psychiatric Psychiatric: appropriate mood/affect, intact judgment & insight - Neurologic Neurologic: CNII-XII intact, moves all extremities - Allied Health Allied health notes reviewed: nursing, case management - Constitutional Vitals: Temp Pulse Resp BP Pulse Ox 98.5 F 78 18 162/75 100 07/09/21 10:05 07/09/21 11:15 07/09/21 10:05 07/09/21 11:15 07/09/21 10:05 Plan Activity: advance as tolerated, fall precautions Diet: low fat, renal Special Instructions: record daily weights, record daily BP diary, physical therapy Follow up with: PRIMARY MD SANTOSH [Primary Care Provider] - 7 Days ALDAIR HARDY MD [Staff Physician] - 7 Days PAYAM SHELDON MD [Staff Physician] - 7 Days [facility] [Outside] - 7 Days Prescriptions: Potassium Chloride [K-Dur] 20 meq PO Q12H #20 tablet Famotidine [Pepcid] 10 mg PO BID #60 tablet oxyCODONE /ACETAMINOPHEN [Percocet 5/325 mg] 1 tab PO Q6H PRN #14 tablet PRN Reason: Pain, Moderate (4-6) Azithromycin [Zithromax TAB] 500 mg PO Q24H #7 tablet
--- NOTE | 2021-07-09 14:17 | Vascular Lab Report ---
DUPLEX DOPPLER LOWER EXTREMITY ARTERIAL, RIGHT INDICATION / CLINICAL INFORMATION: Right ankle ulcer. TECHNIQUE: Arterial duplex examination of the right lower extremity performed using B-mode, color flow and spect ral Doppler assessment. FINDINGS: RIGHT: - Atherosclerotic Plaque: Moderate scattered atherosclerotic plaque. - Elevated Velocity (>200 cm/s): None. - Abnormal Waveform: Biphasic waveform from the right common femoral artery through the distal SFA. M onophasic popliteal and posterior tibial artery. 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 There is also mo nophasic flow in the dorsalis pedis artery. ADDITIONAL FINDINGS: None. IMPRESSION: 1. Moderate to severe peripheral atherosclerotic disease of the right lower extremity. 2. 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 Dampened monophasic waveforms within the posterior tibial and dorsalis pedis arteries. Doppler Waveform: - Triphasic is normal. - Biphasic is abnormal if clear transition from triphasic signal along vascular tree. - Monophasic is abnormal. Signer Name: Piotr Gordon MD Signed: 07/09/2021 2:12 PM Workstation Name: [id number]
[2021-07-09 15:39] VITALS: BP 118/49
== END 2021-07-09 18:05 | disposition hospice, home (50) | DRG 280 ==
LOC: ED 14:44 → 3A 17:18 → 4A 07-07 20:32
PROVIDERS: ADMIT Internal Medicine; ATTEND Internal Medicine
PROC: 5A1D70Z Performance of Urinary Filtration, Intermittent, Less than 6 Hours Per Day (ICD-10-PCS; 2021-07-07)
PROC: 30233N1 Transfusion of Nonautologous Red Blood Cells into Peripheral Vein, Percutaneous Approach (ICD-10-PCS; principal; 2021-07-08)
PROC: 5A1D70Z Performance of Urinary Filtration, Intermittent, Less than 6 Hours Per Day (ICD-10-PCS; 2021-07-09)
DX: I13.2 Hypertensive heart and chronic kidney disease with heart failure and with stage 5 chronic kidney disease, or end stage renal disease (principal); J96.21 Acute and chronic respiratory failure with hypoxia; I21.4 Non-ST elevation (NSTEMI) myocardial infarction; I50.43 Acute on chronic combined systolic (congestive) and diastolic (congestive) heart failure; N18.6 End stage renal disease; E87.1 Hypo-osmolality and hyponatremia; E44.1 Mild protein-calorie malnutrition; L97.213 Non-pressure chronic ulcer of right calf with necrosis of muscle; I69.354 Hemiplegia and hemiparesis following cerebral infarction affecting left non-dominant side; Z20.822 Contact with and (suspected) exposure to COVID-19; I27.20 Pulmonary hypertension, unspecified; I25.5 Ischemic cardiomyopathy; D63.1 Anemia in chronic kidney disease; I44.7 Left bundle-branch block, unspecified; I25.10 Atherosclerotic heart disease of native coronary artery without angina pectoris; F03.90 Unspecified dementia, unspecified severity, without behavioral disturbance, psychotic disturbance, mood disturbance, and anxiety; J44.9 Chronic obstructive pulmonary disease, unspecified; Z99.81 Dependence on supplemental oxygen; Z99.2 Dependence on renal dialysis; Z86.16 Personal history of COVID-19; Z68.27 Body mass index [BMI] 27.0-27.9, adult; Z95.5 Presence of coronary angioplasty implant and graft; Z90.710 Acquired absence of both cervix and uterus
CPT/HCPCS: 36415; 71045; 71046; 80048; 80053; 80061; 80074; 82607; 82747; 83036; 83550; 83880; 84484; 85025; 85027; 86850; 86900; 86901; 86920; 87040; 93005; 93306; 94640; 94644; 96365; G0378; A9270-GY; J0456; J0696; J0885; J1170; J1644; J1940; J2543; J3370; J7040; P9016; U0003